=== PATIENT | female | born 1975 | race Caucasian/White ===

== ENCOUNTER 2020-06-18 20:54 | Inpatient (IN) ==
[2020-06-18 21:49] LABS: Basophils # (auto) 0.02 K/uL (0-0.2); Basophils % (auto) 0.3 %; Eosinophils # (auto) 0.15 K/uL (0-0.5); Eosinophils % (auto) 1.9 %; Hematocrit (blood only) 44.4 % (37-47); Hemoglobin 14.9 g/dL (12.0-16.0); Lymphocytes # (auto) 1.22 K/uL (1.2-3.4); Lymphocytes % (auto) 15.3 %; Mean Corpuscular Hgb Conc 33.6 g/dL (32-36); Mean Corpuscular Volume 89.5 fL (80-100); Mean Platelet Volume 9.6 fL (7.4-10.4); Monocytes # (auto) 0.48 K/uL (0.11-0.59); Neutrophils % (auto) 76.5 %; Platelet Count 226 K/uL (130-400); RDW Coefficient of Variation 13.2 % (11.5-14.5); RDW Standard Deviation 42.9 fL (36.4-46.3); Red Blood Count 4.96 M/uL (4.2-5.4); White Blood Count 7.97 K/uL (4.8-10.8)
[2020-06-18 22:04] LABS: Partial Thromboplastin Ratio 0.8; Prothrombin Time 10.9 Seconds (9.0-12.0)
[2020-06-18 22:12] LABS: BUN Creatinine Ratio 12.5 (10-20); Blood Urea Nitrogen 14 mg/dl (7-18); Carbon Dioxide 27 mmol/L (21-32); Chloride 103 mmol/L (98-107); Creatinine Clr Calc Pharmacy 75.9 ml/min; Est GFR (African American) 70.5; Est GFR (Non-African American) 60.8; Glucose 88 mg/dl (70-99); Lipase 104 U/L (73-393); Potassium 3.3 mmol/L (3.5-5.1); Sodium 137 mmol/L (136-145)
[2020-06-18 22:17] LABS: Troponin I < 0.015 ng/ml (0-0.045)
[2020-06-18] MEDS ORDERED: OPTIRAY 320 125ml IV ONE (22:29)
[2020-06-18] MEDS ORDERED: HEPARIN SOD (PORCINE) 1000 UNIT/ML 10 ML VIAL ONE (23:05)
--- NOTE | 2020-06-18 23:12 | Emergency Department Note ---
History of Present Illness General Chief complaint: Shoulder Pain Stated complaint: SHOULDER PAIN WHEN BREATHING, CLOT IN R LEG Time Seen by Provider: 06/18/20 21:02 History of Present Illness Provider complaint: Left shoulder pain Onset (ago): week(s) 1 Location: upper extremity and left Radiation: non-radiation Severity: moderate Pain Consistency: + constant Maximum Pain Intensity: 6 Current Pain Intensity: 6 Quality: + aching Relieved By: + none Exacerbated By: + none Associated symptoms: + chest pain 44-year-old female presents emergency department for left shoulder pain. Patient's pain has been on and off for the last week. She states it is worse when she takes deep breaths. She also states she is having pain in her left chest. Patient states she has been told that she has a DVT in her leg. Patient states her doctor did not put her on any blood thinning medications because they thought that the DVT was not real stating "they thought it was foam". She states that they have been instead doing therapies with the laser. Home Medications Medication Instructions Recorded Confirmed Type [id number]-[id number]-dvqmay ala 1 tab PO DAILY 06/18/20 06/18/20 History [Patrickefsey] Allergies Allergy/AdvReac Type Severity Reaction Status Date / Time terconazole Allergy Intermediate Hives Verified 06/18/20 22:34 IMIDAZOLE Allergy Unknown . Uncoded 06/18/20 22:34 Past Med/Surg History Medical History (Updated 06/18/20 @ 23:18 by Jack Hemphill) DVT (deep vein thrombosis) in HIV (human immunodeficiency virus infection) No pertinent family history Surgical History (Updated 06/18/20 @ 23:14 by Jack Hemphill) No pertinent past surgical history Social History Smoking Status: Never smoker Preferred Language: Maori Feels Safe at Home: Yes Review of Systems A total of 10 systems reviewed and were otherwise negative Physical Exam Vital Signs Vital Signs - 24 hr 06/18/20 20:57 06/18/20 21:31 06/18/20 22:00 Temperature 36.5 C Temperature Source Temporal Artery Scan Pulse Rate 87 88 79 Pulse Rate from SpO2 Sensor 89 77 Respiratory Rate 24 20 20 Respiratory Depth Normal Blood Pressure 167/103 H 131/95 134/83 Blood Pressure Mean 124 113 99 Pulse Oximetry 96 96 98 Oxygen Delivery Method Room Air Room Air Room Air Sepsis Recent Fever Within 48 Hours No Sepsis New/Unexplained Change in Mental Status N/A Sepsis Action Taken by Nursing No Action Required Physical Exam GENERAL: She is oriented to person, place, and time. She appears well-developed and well-nourished. She does not appear distressed. HENT: Exam performed. -Head: Normocephalic and atraumatic. -Right Ear: External ear normal. No mastoid tenderness. -Left Ear: External ear normal. No mastoid tenderness. -Mouth/Throat: The oropharynx is clear and moist. No trismus in the jaw. No dental abscesses or uvula swelling. No oropharyngeal exudate or tonsillar abscesses. EYES: Conjunctivae and EOM are normal. Pupils are equal, round, and reactive to light. Right eye exhibits no discharge. Left eye exhibits no discharge. No scleral icterus. NECK: Normal range of motion. Neck supple. No JVD present. No spinous process tenderness present. No carotid bruit present. No rigidity. No tracheal deviation and normal range of motion present. No Brudzinski's sign and no Kernig's sign noted. CV: Normal rate, regular rhythm, normal heart sounds and intact distal pulses. There is no peripheral edema. Palpable radial pulses bue. PULM/CHEST: Effort normal and breath sounds normal. No respiratory distress. No stridor. She has no wheezes. She has no rales. -Chest Wall: She exhibits no tenderness. ABD: The abdomen is soft. Bowel sounds are normal. She has no distension. No mass is present. There is no tenderness. There is no rebound, no guarding, no Mccormack's sign and no tenderness at McBurney's point. Rovsig negative MUSC/SKEL: Normal range of motion. There is no peripheral edema, tenderness or deformity. LYMPH: No cervical adenopathy. NEURO: She is alert and oriented to person, place, and time. She has normal strength. No cranial nerve deficit or sensory deficit. Coordination and gait normal. GCS eye subscore is 4. GCS verbal subscore is 5. GCS motor subscore is 6. Cerebellar tests wnl. SKIN: Skin is warm and dry. She is not diaphoretic. PSYCH: She has a normal mood and affect. Behavior is normal. Judgment and thought content normal. Course Course 2101: The patient was evaluated in room C9. A complete history and physical exam was performed. Cardiac monitoring: An order was placed for continuous cardiac monitoring. The monitor shows a rate of 80 with sinus rhythm 2315: Vital signs stable. CTA of the chest did show segmental PE in the lingula with diffuse bilateral groundglass attenuation. Labs are within normal limits. Patient will be started on heparin and admitted to the hospitalist service Dr. Pina will evaluate the patient. Administered Medications Discontinued Medications Ioversol (Optiray 320 125ml) 103 ml IV ONCE ONE Stop: 06/18/20 22:30 Last Admin: 06/18/20 22:30 Dose: 103 ml Documented by: [id number] Critical Care Time Critical Care Time: Yes Total Critical Care Time: 46 I have personally spent greater than 46 minutes of critical care time in the dir ect management of this patient. This includes bedside care, interpretation of diagnostic studies, and testing, discussion with consultants, patient, and family members, and other required patient management activities. This 46 minutes is in excess of all separately billable procedures. Medical Decision Making Laboratory Data Result diagrams: 06/18/20 21:40 06/18/20 21:40 Lab Results 06/18/20 06/18/20 06/18/20 Range/Units 21:40 21:40 21:40 WBC 7.97 (4.8-10.8) K/uL RBC 4.96 (4.2-5.4) M/uL Hgb 14.9 (12.0-16.0) g/dL Hct 44.4 (37-47) % MCV 89.5 (80-100) fL MCH 30.0 (25-34) pg MCHC 33.6 (32-36) g/dL RDW Std Deviation 42.9 (36.4-46.3) fL RDW Coeff of Trung 13.2 (11.5-14.5) % Plt Count 226 (130-400) K/uL MPV 9.6 (7.4-10.4) fL Immature Gran % (Auto) 0.0 % Neut % (Auto) 76.5 % Lymph % (Auto) 15.3 % Tarrant % (Auto) 6.0 % Eos % (Auto) 1.9 % Baso % (Auto) 0.3 % Neut # (Auto) 6.10 (1.4-6.5) K/uL Lymph # (Auto) 1.22 (1.2-3.4) K/uL Tarrant # (Auto) 0.48 (0.11-0.59) K/uL Eos # (Auto) 0.15 (0-0.5) K/uL Baso # (Auto) 0.02 (0-0.2) K/uL Immature Gran # (Auto) 0.00 (0.00-0.02) K/uL PT 10.9 (9.0-12.0) Seconds INR 1.0 (0.9-1.1) APTT 21.0 (21.0-31.0) Seconds PTT Ratio 0.8 Sodium 137 (136-145) mmol/L Potassium 3.3 L (3.5-5.1) mmol/L Chloride 103 (98-107) mmol/L Carbon Dioxide 27 (21-32) mmol/L Anion Gap 7.0 (3-11) BUN 14 (7-18) mg/dl Creatinine 1.09 (0.6-1.2) mg/dl Est Cr Clr Drug Dosing 75.9 ml/min Est GFR ( Amer) 70.5 Est GFR (Non-Af Amer) 60.8 BUN/Creatinine Ratio 12.5 (10-20) Glucose 88 (70-99) mg/dl Calcium 9.0 (8.5-10.1) mg/dl Troponin I < 0.015 (0-0.045) ng/ml Lipase 104 (73-393) U/L Imaging Data My Impression: Chest x-ray negative. Airway clear. No pneumothorax. No consolidation. No cardiomegaly or cephalization.. No free air under the diaphragm. No fractures of the skeletal structures. Radiologist's Impression: Preliminary Findings Only See Final Report For Complete Findings CTA CHEST: Study degraded by respiratory motion. Acute segmental pulmonary embolism in the lingula (series 4, images 69-85; series 402, image 60). No right ventricular strain. No thoracic aortic aneurysm. Normal heart size. No pericardial effusion. Diffuse bilateral ground-glass lung attenuation may represent mild congestive and/or atelectatic change. No consolidation. No pleural effusion or pneumothorax. No acute osseous findings. Radiologist: Milla Leon M.D. Study ready at 22:35 and initial results transmitted at 22:41 Communications: Clear Time Type Notes 06/18/20 22:44 Call Doctor Regarding Pulmonary Embolism, called Dr. Hemphill on 06/18 22:44 (-05:00) ECG Data Indication: + chest pain Rate (beats per minute): 85 Rhythm: + normal sinus ECG Intervals/blocks: + Normal TN and + Normal QT-c ECG ST segments: + Normal ST segments Additional Comments: QRS 76 MDM Narrative 2102: The patient was evaluated in room C9. A complete history and physical exam was performed. Cardiac monitoring: An order was placed for continuous cardiac monitoring. The monitor shows a rate of 80 with sinus rhythm 2315: Vital signs stable. CTA of the chest did show segmental PE in the lingula with diffuse bilateral groundglass attenuation. Labs are within normal limits. Patient will be started on heparin and admitted to the hospitalist service Dr. Pina will evaluate the patient. Impression & Plan Pulmonary embolism, HIV (human immunodeficiency virus infection) Discharge Plan Visit Data Chief Complaint: Shoulder Pain Stated Complaint: SHOULDER PAIN WHEN BREATHING, CLOT IN R LEG ED Provider: Jack Hemphill Discharge Problem: Pulmonary embolism, HIV (human immunodeficiency virus infection) Patient Disposition: Being Evaluated by Hospitalist Forms Stand Alone Forms: [facility] Prescriptions Prescriptions: No Action Odefsey 200-25-25 mg tablet 1 tab PO DAILY RF: 0 Referrals Referrals: Dontae Boyd MD [Primary Care Provider] - Discharge Problem: Pulmonary embolism Qualifiers: Pulmonary embolism type: single subsegmental (without acute cor pulmonale) Qualified Code(s): I26.93 - Single subsegmental pulmonary embolism without acute cor pulmonale HIV (human immunodeficiency virus infection) Qualifiers: HIV symptom status: unspecified Qualified Code(s): B20 - Human immunodeficiency virus [HIV] disease
[2020-06-19] MEDS: HEPARIN SODIUM/DEXTROSE 25,000 UNITS/500 ML BAG IV SCH ×2 (00:04→20:08)
[2020-06-19] MEDS ORDERED: LORazepam 0.5 MG TAB PO STA (00:20)
[2020-06-19 00:54] LABS: Influenza A virus by PCR Negative (Neg); Influenza B virus by PCR Negative (Neg); RSV by PCR Negative (Neg); SARS CoV2 RNA(COVID-19) InHosp NEGATIVE (Negative)
[2020-06-19] MEDS ORDERED: ONDANSETRON INJ 2 MG/ML 2 ML VIAL IV STA (01:33)
[2020-06-19] MEDS ORDERED: POLYETHYLENE (MIRALAX) 17 GM PACK PO PRN (01:49)
[2020-06-19] MEDS ORDERED: NITROGLYCERIN SL 0.4 MG/TAB TAB SL PRN (01:49)
[2020-06-19] MEDS ORDERED: LORazepam 0.5 MG TAB PO PRN (01:49)
[2020-06-19] MEDS ORDERED: GABAPENTIN 300 MG CAP PO STA (02:02)
[2020-06-19] MEDS: ACETAMINOPHEN 325 MG TAB PO PRN ×2 (02:10→10:35)
[2020-06-19] MEDS ORDERED: KETOROLAC 30 MG/ML VIAL IV ONE (02:34)
[2020-06-19] MEDS ORDERED: LORazepam 0.25 MG/0.5 ML VIAL IV STA (03:08)
--- NOTE | 2020-06-19 03:27 | History and Physical Report ---
DATE OF ADMISSION: 06/19/2020 CHIEF COMPLAINT: Left shoulder pain and found to have acute pulmonary embolism. HISTORY OF PRESENT ILLNESS: This 44-year-old female with past medical history significant for HIV, currently seems to be undetectable viral load, history of asthma, obesity, history of uterine fibroid, history of anxiety, who presents with left shoulder pain. The patient says she is also having venous insufficiency and is following in the vascular clinic where they injected foam into the legs recently. Couple of weeks Doppler showed possible dvt , but they were not sure if that is a clot or foam. Today, she came with left shoulder pain and a CTA of the chest showing acute PE in the lingula and also venous Doppler shows nonocclusive DVT in the right popliteal vein. The patient says the pain is now moving to left chest and pain is more on taking deep breath and subjective feeling of shortness of breath. She had some leg cramps, but that is improved now. The patient is anxious, she asked for some anxiety medication. Says she does not like narcotic pain medications, but okay with Tylenol. Denies any nausea, vomiting. No headache, no blurred vision, no earache, no runny nose, no sore throat, no cough, no loss of sense of smell or taste. No exposure to any COVID patients. No fevers. No dysphagia, no abdominal pain. Normal bowel and bladder movements. Denies any blood in the stools or black stools. No hematuria. Hemodynamics are stable. ALLERGIES: TERCONAZOLE, IMIDAZOLE. PAST MEDICAL HISTORY: As mentioned above. PAST SURGICAL HISTORY: Left breast lesion excision, , oral surgery. MEDICATIONS: The patient is on Odefsey 1 tablet p.o. daily. FAMILY HISTORY: Significant for mother had breast cancer, uterine cancer, hypertension, tumor of her kidney; father has hypertension; maternal grandmother has diabetes; paternal grandmother has diabetes; paternal grandfather has heart disorder; paternal grandmother has heart disorder; maternal grandmother has heart disorder. SOCIAL HISTORY: . No smoking. Alcohol occasional. No drug use. REVIEW OF SYSTEMS: As per HPI. Rest of the review of systems is negative. PHYSICAL EXAMINATION: GENERAL: The patient is morbidly obese, not in acute distress. VITAL SIGNS: Temperature 36.5, pulse 94, respiratory rate 22, blood pressure 110/82, oxygen 96% on room air. HEENT: No pallor, no icterus. Oral mucosa moist. NECK: No JVD, no neck masses seen. CARDIOVASCULAR: S1, S2 heard. Regular rate and rhythm, no murmur, no gallop. RESPIRATORY SYSTEM: Normal AP diameter. No accessory muscle use. No wheezing, no crackles. ABDOMEN: Soft, bowel sounds present, nontender. No distention. CENTRAL NERVOUS SYSTEM: Cranial nerves II through XII grossly intact, nonfocal. EXTREMITIES: Bilateral lower extremity chronic edema seen. Right lower extremity, right calf is warm to palpation. LABORATORY DATA: WBC 7.9, hemoglobin 14.9, hematocrit 44.4, platelets 226. PT 10.9, INR 1, APTT 21. Sodium 137, potassium 3.3, chloride 103, bicarbonate 27, BUN 14, creatinine 1.09, serum glucose 88, calcium 9. Troponin I less than 0.015. Lipase 104. IMAGING DATA: Venous Doppler, nonocclusive right lower extremity right popliteal vein DVT. CT of the chest, showing acute segmental pulmonary embolism in the lingula. EKG: Normal sinus rhythm, rate 85, no acute ST changes seen. ASSESSMENT AND PLAN: This is a 44-year-old female who presents with left shoulder pain and found to have acute pulmonary embolism and also non occlusive deep venous thrombosis in the right lower extremity. 1. Acute pulmonary embolism. Nonocclusive deep venous thrombosis in the right lower extremity. Started on IV heparin, which will be continued Coumadin vs novel agents , to be decided. We will monitor in the [employer]. 2. History of HIV: Continue her home medications. 3. History of anxiety: We will place on Ativan 0.5 mg p.o. b.i.d. p.r.n. 4. Deep venous thrombosis prophylaxis: On iv heparin. DISPOSITION: Monitor in the med tele. Expect to discharge home and follow with family doctor. Level 1 full code. MTDD
[2020-06-19 06:08] LABS: Basophils # (auto) 0.02 K/uL (0-0.2); Basophils % (auto) 0.2 %; Eosinophils # (auto) 0.04 K/uL (0-0.5); Eosinophils % (auto) 0.4 %; Hematocrit (blood only) 37.5 % (37-47); Hemoglobin 12.9 g/dL (12.0-16.0); Immature Granulocytes # (auto) 0.01 K/uL (0.00-0.02); Immature Granulocytes % (auto) 0.1 %; Mean Corpuscular Hemoglobin 30.7 pg (25-34); Mean Corpuscular Hgb Conc 34.4 g/dL (32-36); Mean Corpuscular Volume 89.3 fL (80-100); Mean Platelet Volume 9.5 fL (7.4-10.4); Monocytes # (auto) 0.45 K/uL (0.11-0.59); Monocytes % (auto) 4.5 %; Neutrophils # (auto) 8.58 K/uL (1.4-6.5); Neutrophils % (auto) 85.8 %; Platelet Count 227 K/uL (130-400); RDW Coefficient of Variation 13.2 % (11.5-14.5)
[2020-06-19 06:30] LABS: Partial Thromboplastin Ratio 3.5
[2020-06-19 06:38] LABS: Calcium 8.5 mg/dl (8.5-10.1); Est GFR (African American) 87.7; Est GFR (Non-African American) 75.7; Magnesium 1.9 mg/dl (1.8-2.4); Potassium 3.6 mmol/L (3.5-5.1)
[2020-06-19 06:49] LABS: Partial Thromboplastin Time 96.7 Seconds (21.0-31.0)
--- NOTE | 2020-06-19 07:25 | CT Scan Report ---
CT ANGIOGRAM OF THE CHEST CLINICAL HISTORY: Atypical chest pain. Possible acute pulmonary embolism COMPARISON STUDY: Chest x-ray dated 06/18/2020 TECHNIQUE: Following the IV administration of 103 mL of Optiray-320, CT angiogram of the thorax was p erformed from the thoracic inlet to the lung bases utilizing the pulmonary embolus protocol. Images a re reviewed in the axial, sagittal, and coronal planes. IV contrast was administered without complica tion. MIP imaging was performed. A dose lowering technique was utilized adhering to the principles o f ALARA. CT DOSE: 569.06 mGy.cm FINDINGS: No pathologically enlarged axillary mediastinal or hilar lymph nodes were visualized. There was no evidence of thoracic aortic dilatation. Evaluation of the pulmonary arteries is limited due to significant respiratory motion artifact. There are the last there appears to be a filling defect within a lingular pulmonary artery branch. The fin dings must be viewed as suspicious for acute pulmonary embolism. No pleural effusions are visualized. There is mild groundglass attenuation with a slight mosaic distribution. IMPRESSION: 1. Motion degraded study 2. Apparent pulmonary artery filling defect within a segmental lingular branch. The findings are susp icious for acute pulmonary embolism. 3. Mild diffuse groundglass attenuation with mosaic distribution. ACT 112: Negative or not required by law. Electronically signed by: Adrien Rivera M.D. 06/19/2020 7:24 AM
--- NOTE | 2020-06-19 07:36 | Ultrasound Report ---
ULTRASOUND BILATERAL LOWER EXTREMITY VENOUS CLINICAL HISTORY: Pulmonary embolus COMPARISON STUDY: No priors. TECHNIQUE: Real-time, grayscale, and color Doppler sonography of the deep veins of the right and left lower extremity was performed from the inguinal crease to the calf. Compression and augmentation wer e utilized. FINDINGS: Right lower extremity: There is nonocclusive and acute appearing deep venous thrombosis identified in the right popliteal vein. There is also superficial venous thrombus identified in the popliteal roberta a. The common femoral vein and the superficial femoral vein are patent and normally compressible. The greater saphenous vein and the profunda femoris vein at the junction with the common femoral vein ar e clear. The visualized calf veins are patent. Left lower extremity: There is no sonographic evidence of deep venous thrombosis in the left lower ex tremity. The common femoral, superficial femoral, and popliteal veins are patent and normally rogelio sible. The greater saphenous vein and the profunda femoris vein at the junction with the common femor al vein are clear. The visualized calf veins are patent. IMPRESSION: 1. Nonocclusive deep venous thrombosis is identified in the right popliteal vein. There is also super ficial venous thrombus in the right popliteal fossa. 2. There is no sonographic evidence of deep venous thrombosis in the left lower extremity. ACT 112: Positive. There are findings on this exam that require communication between the performing entity and the patient following Patient Test Result Information Act ([place] Act 112) guidelines. Electronically signed by: Sergio Taveras M.D. 06/19/2020 7:34 AM
--- NOTE | 2020-06-19 07:37 | XRay Report ---
SINGLE VIEW CHEST CLINICAL HISTORY: Atypical chest pain. FINDINGS: An AP, portable, upright chest radiograph is obtained. No prior studies are available for c omparison at the time of dictation. The cardiomediastinal silhouette is unremarkable. The lungs and pleural spaces are clear. No pneumothorax is seen. The bony thorax is grossly intact. IMPRESSION: No active disease in the chest. ACT 112: Negative or not required by law. Electronically signed by: Sergio Taveras M.D. 06/19/2020 7:35 AM
--- NOTE | 2020-06-19 07:47 | Hospitalist Progress Note ---
Date of Service June 19, 2020 Assessment & Plan (1) Pulmonary embolism: (2) HIV (human immunodeficiency virus infection): This is a 44-year-old female who presents with left shoulder pain and found to have acute pulmonary embolism and also non occlusive deep venous thrombosis in the right lower extremity. 1. Acute pulmonary embolism. Nonocclusive deep venous thrombosis in the right lower extremity. Started on IV heparin, which will be continued Coumadin vs novel agents , to be decided. We will monitor in the [place] tele. Lidocaine patch for pain, Tylenol Oxycodone ordered prn 2. History of HIV: Continue her home medications. 3. History of anxiety: We will place on Ativan 0.5 mg p.o. b.i.d. p.r.n. 4. Deep venous thrombosis prophylaxis: On iv heparin. Admission and Anticipated Discharge Date Admission Date: June 19, 2020 Subjective Pt seen in follow up of PE, chest pain, shoulder pain. Continues to have chest pain with deep inspiration or certain movements. No shortness of breath at this time. Review of Systems Review of Systems: All systems reviewed & are unremarkable except as noted in HPI & below Constitutional: no fever, no chills and no fatigue Respiratory: no cough and no dyspnea Cardiovascular: + chest pain (w/ inspiration) Gastrointestinal: no abdominal pain, no nausea and no vomiting Physical Exam Physical Exam: GENERAL: The patient is morbidly obese, not in acute distress. HEENT: No pallor, no icterus. Oral mucosa moist. NECK: No JVD, no neck masses seen. CARDIOVASCULAR: S1, S2 heard. Regular rate and rhythm, no murmur, no gallop. RESPIRATORY SYSTEM: Normal AP diameter. No accessory muscle use. Somewhat diminished breath sounds. No wheezing, no crackles. ABDOMEN: Soft, bowel sounds present, nontender. No distention. NEURO: alert and oriented x3, speech fluent, no facial asymmetry, moves extremi ties EXTREMITIES: Bilateral lower extremity chronic edema seen. Results & Data Results & Data ([facility]) Vital Signs (Past 12 Hours) Vital Signs Temp Pulse Pulse Resp BP BP Pulse Ox 06/19/20 07:24 70 06/19/20 02:59 37 C 85 22 117/68 98 06/19/20 02:29 92 H 06/19/20 01:51 37.8 C H 83 18 118/79 95 06/19/20 01:00 99 H 18 121/78 96 06/19/20 00:30 89 24 115/67 97 06/19/20 00:00 94 H 22 110/82 96 06/18/20 23:46 101 H 30 H 138/92 97 06/18/20 22:00 79 20 134/83 98 06/18/20 21:31 88 20 131/95 96 06/18/20 20:57 36.5 C 87 24 167/103 H 96 Laboratory Results 06/19/20 06/19/20 06/19/20 Range/Units 05:51 05:51 05:51 WBC 10.00 (4.8-10.8) K/uL RBC 4.20 (4.2-5.4) M/uL Hgb 12.9 (12.0-16.0) g/dL Hct 37.5 (37-47) % MCV 89.3 (80-100) fL MCH 30.7 (25-34) pg MCHC 34.4 (32-36) g/dL RDW Std Deviation 43.0 (36.4-46.3) fL RDW Coeff of Trung 13.2 (11.5-14.5) % Plt Count 227 (130-400) K/uL MPV 9.5 (7.4-10.4) fL Immature Gran % (Auto) 0.1 % Neut % (Auto) 85.8 % Lymph % (Auto) 9.0 % [facility] % (Auto) 4.5 % Eos % (Auto) 0.4 % Baso % (Auto) 0.2 % Neut # (Auto) 8.58 H (1.4-6.5) K/uL Lymph # (Auto) 0.90 L (1.2-3.4) K/uL [facility] # (Auto) 0.45 (0.11-0.59) K/uL Eos # (Auto) 0.04 (0-0.5) K/uL Baso # (Auto) 0.02 (0-0.2) K/uL Immature Gran # (Auto) 0.01 (0.00-0.02) K/uL PT (9.0-12.0) Seconds INR (0.9-1.1) APTT 96.7 H* (21.0-31.0) Seconds PTT Ratio 3.5 Sodium 137 (136-145) mmol/L Potassium 3.6 (3.5-5.1) mmol/L Chloride 105 (98-107) mmol/L Carbon Dioxide 24 (21-32) mmol/L Anion Gap 8.0 (3-11) BUN 11 (7-18) mg/dl Creatinine 0.91 (0.6-1.2) mg/dl Est Cr Clr Drug Dosing 90.0 ml/min Est GFR ( Amer) 87.7 Est GFR (Non-Af Amer) 75.7 BUN/Creatinine Ratio 12.0 (10-20) Glucose 122 H (70-99) mg/dl Calcium 8.5 (8.5-10.1) mg/dl Magnesium 1.9 (1.8-2.4) mg/dl Troponin I (0-0.045) ng/ml Lipase (73-393) U/L COVID-19 Eval Order SARS-CoV-2 (PCR) (Negative) Influenza Type A (PCR) (Neg) Influenza Type B (PCR) (Neg) RSV (RT-PCR) (Neg) 06/18/20 06/18/20 06/18/20 Range/Units 23:47 23:47 21:40 WBC (4.8-10.8) K/uL RBC (4.2-5.4) M/uL Hgb (12.0-16.0) g/dL Hct (37-47) % MCV (80-100) fL MCH (25-34) pg MCHC (32-36) g/dL RDW Std Deviation (36.4-46.3) fL RDW Coeff of Trung (11.5-14.5) % Plt Count (130-400) K/uL MPV (7.4-10.4) fL Immature Gran % (Auto) % Neut % (Auto) % Lymph % (Auto) % [facility] % (Auto) % Eos % (Auto) % Baso % (Auto) % Neut # (Auto) (1.4-6.5) K/uL Lymph # (Auto) (1.2-3.4) K/uL [facility] # (Auto) (0.11-0.59) K/uL Eos # (Auto) (0-0.5) K/uL Baso # (Auto) (0-0.2) K/uL Immature Gran # (Auto) (0.00-0.02) K/uL PT (9.0-12.0) Seconds INR (0.9-1.1) APTT (21.0-31.0) Seconds PTT Ratio Sodium 137 (136-145) mmol/L Potassium 3.3 L (3.5-5.1) mmol/L Chloride 103 (98-107) mmol/L Carbon Dioxide 27 (21-32) mmol/L Anion Gap 7.0 (3-11) BUN 14 (7-18) mg/dl Creatinine 1.09 (0.6-1.2) mg/dl Est Cr Clr Drug Dosing 75.9 ml/min Est GFR ( Amer) 70.5 Est GFR (Non-Af Amer) 60.8 BUN/Creatinine Ratio 12.5 (10-20) Glucose 88 (70-99) mg/dl Calcium 9.0 (8.5-10.1) mg/dl Magnesium (1.8-2.4) mg/dl Troponin I < 0.015 (0-0.045) ng/ml Lipase 104 (73-393) U/L COVID-19 Eval Order CovFluRsv at [facility] SARS-CoV-2 (PCR) NEGATIVE (Negative) Influenza Type A (PCR) Negative (Neg) Influenza Type B (PCR) Negative (Neg) RSV (RT-PCR) Negative (Neg) 06/18/20 06/18/20 Range/Units 21:40 21:40 WBC 7.97 (4.8-10.8) K/uL RBC 4.96 (4.2-5.4) M/uL Hgb 14.9 (12.0-16.0) g/dL Hct 44.4 (37-47) % MCV 89.5 (80-100) fL MCH 30.0 (25-34) pg MCHC 33.6 (32-36) g/dL RDW Std Deviation 42.9 (36.4-46.3) fL RDW Coeff of Trung 13.2 (11.5-14.5) % Plt Count 226 (130-400) K/uL MPV 9.6 (7.4-10.4) fL Immature Gran % (Auto) 0.0 % Neut % (Auto) 76.5 % Lymph % (Auto) 15.3 % [facility] % (Auto) 6.0 % Eos % (Auto) 1.9 % Baso % (Auto) 0.3 % Neut # (Auto) 6.10 (1.4-6.5) K/uL Lymph # (Auto) 1.22 (1.2-3.4) K/uL [facility] # (Auto) 0.48 (0.11-0.59) K/uL Eos # (Auto) 0.15 (0-0.5) K/uL Baso # (Auto) 0.02 (0-0.2) K/uL Immature Gran # (Auto) 0.00 (0.00-0.02) K/uL PT 10.9 (9.0-12.0) Seconds INR 1.0 (0.9-1.1) APTT 21.0 (21.0-31.0) Seconds PTT Ratio 0.8 Sodium (136-145) mmol/L Potassium (3.5-5.1) mmol/L Chloride (98-107) mmol/L Carbon Dioxide (21-32) mmol/L Anion Gap (3-11) BUN (7-18) mg/dl Creatinine (0.6-1.2) mg/dl Est Cr Clr Drug Dosing ml/min Est GFR ( Amer) Est GFR (Non-Af Amer) BUN/Creatinine Ratio (10-20) Glucose (70-99) mg/dl Calcium (8.5-10.1) mg/dl Magnesium (1.8-2.4) mg/dl Troponin I (0-0.045) ng/ml Lipase (73-393) U/L COVID-19 Eval Order SARS-CoV-2 (PCR) (Negative) Influenza Type A (PCR) (Neg) Influenza Type B (PCR) (Neg) RSV (RT-PCR) (Neg) Medications Administered Current Inpatient Medications Acetaminophen (Acetaminophen 325 Mg Tab) 650 mg PO Q4H PRN PRN Reason: Pain or Fever Stop: 07/19/20 01:48 Last Admin: 06/19/20 02:10 Dose: 650 mg Documented by: Heparin Sodium/Dextrose (Heparin Sodium/Dextrose) 25,000 units in 500 mls @ 27 mls/hr IV .[id number] [facility]; Protocol Stop: 07/18/20 22:59 Last Titration: 06/19/20 06:49 Dose: 0 units/hr, 0 mls/hr Documented by: Lorazepam (Lorazepam 0.5 Mg Tab) 0.25 mg PO BID PRN PRN Reason: Anxiety Stop: 07/19/20 01:48 Last Admin: 06/19/20 02:17 Dose: 0.25 mg Documented by: Miscellaneous ([id number] [Patrickefsey]: Order Awaiting Action) 1 ea N/A QS [facility] Stop: 07/19/20 07:59 Nitroglycerin (Nitroglycerin Sl 0.4 Mg/Tab Tab) 0.4 mg SL UD PRN PRN Reason: Chest Pain Stop: 07/19/20 01:48 Ondansetron HCl (Ondansetron Inj 2 Mg/Ml 2 Ml Vial) 4 mg IV Q6H PRN PRN Reason: Nausea Stop: 07/19/20 01:48 Polyethylene Glycol (Polyethylene (Miralax) 17 Gm Pack) 17 gm PO DAILY PRN PRN Reason: Constipation Stop: 07/19/20 01:48 (1) HIV (human immunodeficiency virus infection) HIV symptom status: unspecified Qualified Code(s): B20 - Human immunodeficiency virus [HIV] disease (2) Pulmonary embolism Pulmonary embolism type: single subsegmental (without acute cor pulmonale) Qualified Code(s): I26.93 - Single subsegmental pulmonary embolism without acute cor pulmonale
--- NOTE | 2020-06-19 11:23 | Electrocardiogram Report ---
Test Reason : Blood Pressure : / mmHG Vent. Rate : 085 BPM Atrial Rate : 085 BPM P-R Int : 148 ms QRS Dur : 076 ms QT Int : 384 ms P-R-T Axes : 015 017 015 degrees QTc Int : 456 ms Normal sinus rhythm Normal ECG No previous ECGs available Confirmed by Anderson Montesinos ([id number]) on 06/19/2020 11:23:00 AM Referred By: REFERRED SELF Confirmed By:Efrain Montesinos
[2020-06-19] MEDS ORDERED: oxyCODONE HCL IR 5 MG TAB (IMMEDIATE RELEASE) PO PRN ×2 (13:16→18:23)
[2020-06-19] MEDS: LIDOCAINE 5% 1 PATCH TD SCH (13:46)
[2020-06-19] MEDS ORDERED: MAGNESIUM OXIDE 400 MG TAB PO ONE (14:30)
[2020-06-19] MEDS ORDERED: POTASSIUM CHLORIDE CRTAB 20 MEQ TABCR PO ONE (14:30)
[2020-06-19 14:50] LABS: Partial Thromboplastin Ratio 2.2
[2020-06-19] MEDS ORDERED: MoRPHine SULFATE 2 MG/ML CARP IV STA ×2 (16:03→18:22)
--- NOTE | 2020-06-19 16:24 | Electrocardiogram Report ---
Test Reason : Blood Pressure : / mmHG Vent. Rate : 077 BPM Atrial Rate : 077 BPM P-R Int : 124 ms QRS Dur : 084 ms QT Int : 412 ms P-R-T Axes : 030 021 019 degrees QTc Int : 466 ms Normal sinus rhythm When compared with ECG of 18-JUN-2020 21:24, No significant change was found Confirmed by Anderson Montesinos ([id number]) on 06/19/2020 4:24:18 PM Referred By: REFERRED SELF Confirmed By:Efrain Montesinos
--- NOTE | 2020-06-19 17:00 | XRay Report ---
XR chest 1V portable HISTORY: 44 years-old Female follow up, chest pain . Acute atypical chest pain COMPARISON: Chest radiograph and CTA chest 06/18/2020 TECHNIQUE: Portable AP view of the chest FINDINGS: Cardiac silhouette is enlarged. Hypoinflation with bronchovascular crowding and interstitial coarseni ng. Bibasilar consolidative opacities. Blunting of the costophrenic angles. No pneumothorax. Imaged u pper abdomen is unremarkable. The bones appear grossly intact. IMPRESSION: Hypoinflation with bronchovascular crowding and bibasilar consolidation suggestive of ate lectasis versus pneumonitis. ACT 112: Negative or not required by law. The above report was generated using voice recognition software. It may contain grammatical, syntax o r spelling errors. Electronically signed by: Justin Mclean M.D. 06/19/2020 4:59 PM
[2020-06-19] MEDS ORDERED: FUROSEMIDE 20 MG in SYRINGE 0 ML IV ONE (17:45)
--- NOTE | 2020-06-19 19:11 | CT Scan Report ---
CT chest diagnostic wo con CT DOSE: 455.77 mGycm CLINICAL HISTORY: 44 years-old Female with follow up, abnormal CXR, PE, chest pain. Acute shortness of breath with bibasilar opacities TECHNIQUE: Multiaxial CT images of the chest were performed without contrast. A dose lowering techni que was utilized adhering to the principles of ALARA. COMPARISON: CTA chest 06/18/2020 FINDINGS: Unremarkable thyroid. No adenopathy. Heart is upper limits of normal in size. No thoracic a ortic aneurysm. Trace pleural effusions. No pneumothorax. Linear subsegmental consolidative opacities are noted bilaterally suggestive of atelectasis. Groundglass and consolidative opacities of the infe rior segment lingula with dense consolidation of the basal left lower lobe with air bronchograms. Misael tral airways appear patent. No acute process of the imaged upper abdomen. Unremarkable soft tissues. No acute fracture. IMPRESSION: 1. Airspace consolidation with air bronchograms of the basal left lower lobe with groundglass and con solidative opacities of the inferior segment lingula are suggestive of pneumonia. 2. No adenopathy. 3. Trace pleural effusions. ACT 112: Negative or not required by law. Electronically signed by: Justin Mclean M.D. 06/19/2020 7:10 PM
[2020-06-19] MEDS: HYDROmorphone INJ 0.5 MG/0.5 ML SYR IV PRN ×2 (19:31→22:42)
[2020-06-19] MEDS: AMOXICILLIN/CLAVULANATE 875 MG TAB PO SCH (21:23)
[2020-06-19] MEDS ORDERED: Nursing to Pharmacy Communication SCH (21:30)
[2020-06-20] MEDS: HYDROmorphone INJ 0.5 MG/0.5 ML SYR IV PRN ×6 (02:09→21:57)
[2020-06-20 06:17] LABS: Hematocrit (blood only) 38.8 % (37-47); Hemoglobin 13.1 g/dL (12.0-16.0); Mean Corpuscular Hemoglobin 30.8 pg (25-34); Mean Corpuscular Hgb Conc 33.8 g/dL (32-36); Mean Corpuscular Volume 91.1 fL (80-100); Mean Platelet Volume 9.7 fL (7.4-10.4); Platelet Count 215 K/uL (130-400); RDW Coefficient of Variation 13.4 % (11.5-14.5); RDW Standard Deviation 44.5 fL (36.4-46.3); Red Blood Count 4.26 M/uL (4.2-5.4); White Blood Count 9.08 K/uL (4.8-10.8)
[2020-06-20 06:42] LABS: BUN Creatinine Ratio 15.9 (10-20); Calcium 8.5 mg/dl (8.5-10.1); Creatinine Clr Calc Pharmacy 88.2 ml/min; Est GFR (African American) 85.4; Est GFR (Non-African American) 73.7; Potassium 3.7 mmol/L (3.5-5.1)
[2020-06-20] MEDS ORDERED: PERFLUTREN LIPID MICROSPHERE (DEFINITY) IV ONE (07:13)
[2020-06-20 07:37] LABS: Partial Thromboplastin Time 56.6 Seconds (21.0-31.0)
[2020-06-20] MEDS: LIDOCAINE 5% 1 PATCH TD SCH (08:44)
[2020-06-20] MEDS: AMOXICILLIN/CLAVULANATE 875 MG TAB PO SCH ×2 (08:44→17:28)
[2020-06-20] MEDS ORDERED: ODEFSEY PO SCH ×2 (09:00→21:00)
[2020-06-20] MEDS: ONDANSETRON INJ 2 MG/ML 2 ML VIAL IV PRN (11:28)
[2020-06-20] MEDS ORDERED: NAPROXEN 250 MG TAB PO ONE (12:30)
--- NOTE | 2020-06-20 13:01 | Hospitalist Progress Note ---
Date of Service June 20, 2020 Assessment & Plan (1) Pulmonary embolism: (2) HIV (human immunodeficiency virus infection): Patient is a 59-year-old female with a past medical history of HIV, asthma, uterine fibroids, possible lower extremity DVT during and venous insufficiency with recent injection form therapy presents to the ED with left shoulder pain. Patient was found to be positive for pulmonary embolism and nonocclusive DVT in the right popliteal vein. This is a 44-year-old female who presents with left shoulder pain and found to have acute pulmonary embolism and also non occlusive deep venous thrombosis in the right lower extremity. Acute pulmonary embolism Nonocclusive DVT in the right popliteal vein Patient denies any prior history with a DVT. Does report the mother have had history of DVTs denies any recent travel. Report recent lower extremity procedure intervention by vascular surgery but patient has been ambulatory. Continue with heparin at this point. Patient remains on 2 L of nasal cannula. Hemodynamically she is doing okay. Obtain transthoracic echo to assess for right heart strain. Given her significant chest discomfort and shortness of breath, will remain on heparin for now. Start patient on Tylenol [id number]-sle-hsyay along with lidocaine patch. Patient has also been on oxycodone and Dilaudid for pain control but is not really helping her much. Did order 1 dose of naproxen this morning. Given her significant chest pain last night CT chest was ordered and there was concern for pneumonia. She was started on Augmentin. However, her white count is normal. Patient was afebrile. We will continue with Augmentin for now. 2. History of HIV: Continue her home medications. 3. History of anxiety: Continue with the as needed Ativan. Admission and Anticipated Discharge Date Admission Date: June 19, 2020 Subjective Patient having significant chest discomfort. Reports she is having difficulty taking deep breaths. She has pleuritic nature of chest discomfort with deep breaths. Does report headache but no dizziness. Denies any palpitations. Does endorse feeling short of breath. Currently on 2 L of nasal cannula. Denies any abdominal pain, diarrhea or dysuria. Rest of the review of system is negative. Review of Systems Review of Systems: All systems reviewed & are unremarkable except as noted in HPI & below Physical Exam Physical Exam: General: A&Ox3 HENT: NCAT, MMM, EOMI Eyes: PERRLA Neck: Supple, normal range of motion CVS: normal rate and rhythm Resp: b/l basal crackles appreciated Abdomen: Soft, nondistended and nontender Extremities: Absence of any edema Neuro: face symmetric, strength grossly equal, no focal deficit Skin: warm and dry, no rashes/lesions/errythema MSK: normal ROM, no joint swelling/erythema Results & Data Results & Data ([facility]) Vital Signs (Past 12 Hours) Vital Signs Temp Pulse Pulse Resp BP Pulse Ox 06/20/20 11:22 37.1 C 87 16 122/83 95 06/20/20 08:00 81 06/20/20 07:00 37.0 C 96 H 20 118/79 (1) Pulmonary embolism Pulmonary embolism type: single subsegmental (without acute cor pulmonale) Q ualified Code(s): I26.93 - Single subsegmental pulmonary embolism without acute cor pulmonale (2) HIV (human immunodeficiency virus infection) HIV symptom status: unspecified Qualified Code(s): B20 - Human immunodeficiency virus [HIV] disease
[2020-06-20] MEDS: HEPARIN SODIUM/DEXTROSE 25,000 UNITS/500 ML BAG IV SCH (15:54)
[2020-06-20] MEDS ORDERED: Nursing to Pharmacy Communication SCH (18:00)
[2020-06-21] MEDS: HYDROmorphone INJ 0.5 MG/0.5 ML SYR IV PRN (04:36)
[2020-06-21 06:18] LABS: Hematocrit (blood only) 38.8 % (37-47); Hemoglobin 12.5 g/dL (12.0-16.0); Mean Corpuscular Hemoglobin 29.7 pg (25-34); Mean Corpuscular Hgb Conc 32.2 g/dL (32-36); Mean Corpuscular Volume 92.2 fL (80-100); Mean Platelet Volume 9.8 fL (7.4-10.4); Platelet Count 201 K/uL (130-400); RDW Coefficient of Variation 13.3 % (11.5-14.5); RDW Standard Deviation 44.7 fL (36.4-46.3); Red Blood Count 4.21 M/uL (4.2-5.4)
[2020-06-21 06:38] LABS: Partial Thromboplastin Ratio 1.8
[2020-06-21 06:39] LABS: Partial Thromboplastin Time 50.6 Seconds (21.0-31.0)
[2020-06-21 06:51] LABS: BUN Creatinine Ratio 16.3 (10-20); Calcium 8.7 mg/dl (8.5-10.1); Creatinine Clr Calc Pharmacy 91.8 ml/min; Est GFR (African American) 90.1; Est GFR (Non-African American) 77.7; Potassium 3.7 mmol/L (3.5-5.1)
[2020-06-21] MEDS: LIDOCAINE 5% 1 PATCH TD SCH (10:01)
[2020-06-21] MEDS: AMOXICILLIN/CLAVULANATE 875 MG TAB PO SCH ×2 (10:01→16:04)
[2020-06-21] MEDS: ONDANSETRON INJ 2 MG/ML 2 ML VIAL IV PRN (10:56)
[2020-06-21] MEDS ORDERED: NAPROXEN 250 MG TAB PO STA (12:10)
[2020-06-21] MEDS ORDERED: PANTOprazole 40 MG TAB PO ONE (12:10)
--- NOTE | 2020-06-21 12:13 | Hospitalist Progress Note ---
Date of Service June 21, 2020 Assessment & Plan (1) Pulmonary embolism: (2) HIV (human immunodeficiency virus infection): Patient is a 59-year-old female with a past medical history of HIV, asthma, uterine fibroids, possible lower extremity DVT during and venous insufficiency with recent injection form therapy presents to the ED with left shoulder pain. Patient was found to be positive for pulmonary embolism and nonocclusive DVT in the right popliteal vein. Acute pulmonary embolism Nonocclusive DVT in the right popliteal vein Possible community-acquired pneumonia. Patient denies any prior history with a DVT. Does report the mother have had h istory of DVTs denies any recent travel. Report recent lower extremity procedure intervention by vascular surgery but patient has been ambulatory. Continue with heparin at this point. Patient remains on 2.5 L of nasal cannula. Hemodynamically she is doing okay. Transthoracic echo without any right heart strain, normal EF. Given her significant chest discomfort and shortness of breath, will remain on heparin for now. Continue with Tylenol dyqqtp-ahk-emwif along with lidocaine patch. He does endorse that naproxen made her pain much better. Again ordered 1 dose of naproxen and Protonix. Try to avoid NSAIDs. Patient has also been on oxycodone and Dilaudid for pain control but is not really helping her much. He did have multiple bowel movements. Probiotic. Remains afebrile. On exam is benign. Continue with Augmentin. However, her white count is normal. Patient was afebrile. Will continue with Augmentin for now. 2. History of HIV: Continue her home medications. 3. History of anxiety: Continue with the as needed Ativan. Admission and Anticipated Discharge Date Admission Date: June 19, 2020 Subjective Patient was walking in the [place] with physical therapy prior to my arrival. Ported that she is feeling better than before however chest pain continues to be an issue. Her chest pain is mostly left sided under the left breast, sharp in nature and 9 out of 10. Reports she has pain/shortness of breath with minimal ambulation. Denies any headache or dizziness. Denies any abdominal pain. Have multiple bowel movements overnight. No nausea or vomiting. Review of Systems Review of Systems: All systems reviewed & are unremarkable except as noted in HPI & below Physical Exam Physical Exam: General: A&Ox3 HENT: NCAT, MMM, EOMI Eyes: PERRLA Neck: Supple, normal range of motion CVS: normal rate and rhythm Resp: b/l basal crackles appreciated Abdomen: Soft, nondistended and nontender Extremities: Absence of any edema Neuro: face symmetric, strength grossly equal, no focal deficit Skin: warm and dry, no rashes/lesions/errythema MSK: normal ROM, no joint swelling/erythema Results & Data Results & Data ([facility]) Vital Signs (Past 12 Hours) Vital Signs Temp Pulse Pulse Resp BP Pulse Ox 06/21/20 11:00 37.5 C 88 20 137/84 91 06/21/20 07:24 37.6 C H 85 18 113/78 93 06/21/20 07:06 84 06/21/20 03:09 36.8 C 93 H 16 118/80 95 06/21/20 00:36 81 (1) Pulmonary embolism Pulmonary embolism type: single subsegmental (without acute cor pulmonale) Qualified Code(s): I26.93 - Single subsegmental pulmonary embolism without acute cor pulmonale (2) HIV (human immunodeficiency virus infection) HIV symptom status: unspecified Qualified Code(s): B20 - Human immunodeficiency virus [HIV] disease
[2020-06-21] MEDS: ADVANCED PROBIOTIC 1250 MG CAPSULE PO SCH (13:04)
[2020-06-21] MEDS: HEPARIN SODIUM/DEXTROSE 25,000 UNITS/500 ML BAG IV SCH (13:06)
[2020-06-21] MEDS: LOPERAMIDE HCL 2 MG CAP PO PRN ×3 (13:06→19:00)
[2020-06-21] MEDS: ACETAMINOPHEN 325 MG TAB PO PRN ×2 (15:17→22:13)
[2020-06-21] MEDS: ODEFSEY PO SCH (15:34)
[2020-06-22] MEDS: LIDOCAINE 5% 1 PATCH TD SCH ×2 (06:29→06:33)
[2020-06-22 06:40] LABS: Partial Thromboplastin Ratio 1.6
[2020-06-22] MEDS: ACETAMINOPHEN 325 MG TAB PO PRN (07:51)
[2020-06-22] MEDS: AMOXICILLIN/CLAVULANATE 875 MG TAB PO SCH ×2 (07:51→17:04)
[2020-06-22] MEDS: ADVANCED PROBIOTIC 1250 MG CAPSULE PO SCH (07:52)
[2020-06-22] MEDS: HYDROmorphone INJ 0.5 MG/0.5 ML SYR IV PRN (08:50)
[2020-06-22] MEDS: HEPARIN SODIUM/DEXTROSE 25,000 UNITS/500 ML BAG IV SCH ×3 (09:34→09:37)
[2020-06-22] MEDS ORDERED: FUROSEMIDE 10 MG in SYRINGE 0 ML IV ONE (10:00)
[2020-06-22] MEDS: APIXABAN 5 MG TABLET PO SCH ×2 (10:17→19:50)
--- NOTE | 2020-06-22 12:42 | Hospitalist Progress Note ---
Date of Service June 22, 2020 Assessment & Plan (1) Pulmonary embolism: (2) HIV (human immunodeficiency virus infection): Patient is a 59-year-old female with a past medical history of HIV, asthma, uterine fibroids, possible lower extremity DVT during and venous insufficiency with recent injection form therapy presents to the ED with left shoulder pain. Patient was found to be positive for pulmonary embolism and nonocclusive DVT in the right popliteal vein. Acute pulmonary embolism Nonocclusive DVT in the right popliteal vein Possible community-acquired pneumonia. Acute hypoxic respiratory failure in the setting of PE/pneumonia and possibly diastolic heart failure Patient denies any prior history with a DVT. Does report the mother have had history of DVTs denies any recent travel. Report recent lower extremity procedure intervention by vascular surgery but patient has been ambulatory. Continue with heparin at this point. Patient remains on 2 L of nasal cannula. Hemodynamically she is doing okay. Transthoracic echo without any right heart strain, normal EF. Will discontinue heparin today and transition patient to Eliquis 10 mg twice daily followed by 5 mg twice daily. Continue with Tylenol etssfk-rye-zuolt along with lidocaine patch. Patient has also been on oxycodone and Dilaudid for pain control but is not really helping her much. Continue with Augmentin. However, her white count is normal. Patient was afebrile. Will continue with Augmentin for now. Order 1 dose of IV Lasix 20 mg today with concern for fluid overload. Monitor ins and outs along with daily weights. She was encouraged to be out of bed and ambulate. 2. History of HIV: Continue her home medications. 3. History of anxiety: Continue with the as needed Ativan. Admission and Anticipated Discharge Date Admission Date: June 19, 2020 Subjective Patient does endorse that she feels better however shortness of breath and chest discomfort remains her primary issue. Rest of the review of system is negative. Hemodynamically doing fine. Currently on 2 L of nasal cannula. Review of Systems Review of Systems: All systems reviewed & are unremarkable except as noted in HPI & below Physical Exam Physical Exam: General: A&Ox3 HENT: NCAT, MMM, EOMI Eyes: PERRLA Neck: Supple, normal range of motion CVS: normal rate and rhythm Resp: b/l basal crackles appreciated Abdomen: Soft, nondistended and nontender Extremities: Absence of any edema Neuro: face symmetric, strength grossly equal, no focal deficit Skin: warm and dry, no rashes/lesions/errythema MSK: normal ROM, no joint swelling/erythema Results & Data Results & Data ([facility]) Vital Signs (Past 12 Hours) Vital Signs Temp Pulse Pulse Resp BP Pulse Ox 06/22/20 07:50 85 06/22/20 07:38 36.8 C 78 18 107/74 93 06/22/20 03:00 37.3 C 80 18 109/73 93 (1) Pulmonary embolism Pulmonary embolism type: single subsegmental (without acute cor pulmonale) Qualified Code(s): I26.93 - Single subsegmental pulmonary embolism without acute cor pulmonale (2) HIV (human immunodeficiency virus infection) HIV symptom status: unspecified Qualified Code(s): B20 - Human immunodeficiency virus [HIV] disease
[2020-06-22 13:15] LABS: Partial Thromboplastin Ratio 1.2; Partial Thromboplastin Time 32.4 Seconds (21.0-31.0)
[2020-06-22] MEDS: ACETAMINOPHEN 325 MG TAB PO SCH ×3 (13:24→23:03)
[2020-06-22] MEDS: ODEFSEY PO SCH (17:04)
[2020-06-23] MEDS: ACETAMINOPHEN 325 MG TAB PO SCH ×3 (06:19→18:09)
[2020-06-23 06:38] LABS: Partial Thromboplastin Ratio 1.3; Partial Thromboplastin Time 36.6 Seconds (21.0-31.0)
[2020-06-23 07:00] LABS: Alanine Aminotransferase 14 U/L (12-78); Aspartate Aminotransferase 10 U/L (15-37)
[2020-06-23] MEDS: ADVANCED PROBIOTIC 1250 MG CAPSULE PO SCH (09:08)
[2020-06-23] MEDS: APIXABAN 5 MG TABLET PO SCH ×2 (09:08→20:05)
[2020-06-23] MEDS: AMOXICILLIN/CLAVULANATE 875 MG TAB PO SCH ×2 (09:08→16:40)
[2020-06-23] MEDS: LIDOCAINE 5% 1 PATCH TD SCH (09:08)
[2020-06-23 09:27] LABS: BUN Creatinine Ratio 16.2 (10-20); Creatinine Clr Calc Pharmacy 106.2 ml/min; Est GFR (African American) 107.3; Est GFR (Non-African American) 92.6; Magnesium 2.1 mg/dl (1.8-2.4); Phosphorus 3.8 mg/dl (2.5-4.9); Potassium 3.7 mmol/L (3.5-5.1)
[2020-06-23] MEDS ORDERED: FUROSEMIDE 20 MG in SYRINGE 0 ML IV ONE (09:30)
[2020-06-23 09:39] LABS: Basophils # (auto) 0.01 K/uL (0-0.2); Basophils % (auto) 0.1 %; Eosinophils # (auto) 0.18 K/uL (0-0.5); Eosinophils % (auto) 2.6 %; Hematocrit (blood only) 36.4 % (37-47); Hemoglobin 12.2 g/dL (12.0-16.0); Immature Granulocytes # (auto) 0.02 K/uL (0.00-0.02); Immature Granulocytes % (auto) 0.3 %; Lymphocytes # (auto) 0.89 K/uL (1.2-3.4); Lymphocytes % (auto) 12.7 %; Mean Corpuscular Hemoglobin 30.7 pg (25-34); Mean Corpuscular Volume 91.7 fL (80-100); Mean Platelet Volume 9.9 fL (7.4-10.4); Monocytes # (auto) 0.51 K/uL (0.11-0.59); Monocytes % (auto) 7.3 %; Neutrophils # (auto) 5.42 K/uL (1.4-6.5); Platelet Count 285 K/uL (130-400); RDW Standard Deviation 43.5 fL (36.4-46.3); Red Blood Count 3.97 M/uL (4.2-5.4); White Blood Count 7.03 K/uL (4.8-10.8)
--- NOTE | 2020-06-23 10:33 | Hospitalist Progress Note ---
Date of Service June 23, 2020 Assessment & Plan (1) Pulmonary embolism: (2) HIV (human immunodeficiency virus infection): Patient is a 59-year-old female with a past medical history of HIV, asthma, uterine fibroids, possible lower extremity DVT during and venous insufficiency with recent injection form therapy presents to the ED with left shoulder pain. Patient was found to be positive for pulmonary embolism and nonocclusive DVT in the right popliteal vein. Acute pulmonary embolism Nonocclusive DVT in the right popliteal vein Possible community-acquired pneumonia. Acute hypoxic respiratory failure in the setting of PE/pneumonia and possibly diastolic heart failure Patient denies any prior history with a DVT. Does report the mother have had history of DVTs denies any recent travel. Report recent lower extremity procedure intervention by vascular surgery but patient has been ambulatory. Continue with Eliquis 10 mg twice daily for 7 days followed by 5 mg twice daily. Patient remains on 2 L of nasal cannula. Hemodynamically she is doing okay. Transthoracic echo without any right heart strain, normal EF. Will discontinue heparin today and transition patient to Eliquis 10 mg twice daily followed by 5 mg twice daily. Continue with Tylenol [id number] along with lidocaine patch. Continue with oxycodone and Dilaudid for pain control. Continue with Augmentin. However, her white count is normal. Patient was afebrile. Will continue with Augmentin for now. Order 1 dose of IV Lasix 20 mg gain today with concern for fluid overload. Monitor ins and outs along with daily weights. She was encouraged to be out of bed and ambulate. Attempt was made to wean patient off the oxygen at rest however patient became hypoxic at 89%. Patient is reporting that she is coughing up bloody phlegm/clots globin at 12.2 today, 14.9 on admission. Possibly component of contraction from diuresis as well. Will continue to monitor. Encouraged the use of incentive spirometer. 2. History of HIV: Continue her home medications. 3. History of anxiety: Continue with the as needed Ativan. Admission and Anticipated Discharge Date Admission Date: June 19, 2020 Subjective Reports she is feeling better than before. Chest pain/shortness of breath is improved. Remains on 2 L of nasal cannula became hypoxic on room air at rest. Adequate urine output in the last 24 hours. T-Max of 38 overnight. Ports diarrhea is resolved. She is coughing up bloody phlegm. Physical Exam Physical Exam: General: A&Ox3 HENT: NCAT, MMM, EOMI Eyes: PERRLA Neck: Supple, normal range of motion CVS: normal rate and rhythm Resp: b/l basal crackles appreciated Abdomen: Soft, nondistended and nontender Extremities: Absence of any edema Neuro: face symmetric, strength grossly equal, no focal deficit Skin: warm and dry, no rashes/lesions/errythema MSK: normal ROM, no joint swelling/erythema Results & Data Results & Data ([facility]) Vital Signs (Past 12 Hours) Vital Signs Temp Pulse Pulse Resp BP BP Pulse Ox 06/23/20 07:39 89 06/23/20 07:26 37.0 C 84 20 103/70 95 06/23/20 02:20 37.1 C 86 16 115/79 94 06/23/20 01:30 37.1 C 06/22/20 22:52 38.0 C H 99 H 18 132/82 92 (1) Pulmonary embolism Pulmonary embolism type: single subsegmental (without acute cor pulmonale) Qualified Code(s): I26.93 - Single subsegmental pulmonary embolism without acute cor pulmonale (2) HIV (human immunodeficiency virus infection) HIV symptom status: unspecified Qualified Code(s): B20 - Human immunodeficiency virus [HIV] disease
[2020-06-23 10:44] LABS: Mean Corpuscular Hgb Conc 33.5 g/dL (32-36)
[2020-06-23] MEDS: ODEFSEY PO SCH (16:40)
[2020-06-24] MEDS: ACETAMINOPHEN 325 MG TAB PO SCH ×4 (00:48→18:08)
[2020-06-24 06:34] LABS: Basophils # (auto) 0.02 K/uL (0-0.2); Basophils % (auto) 0.3 %; Eosinophils # (auto) 0.21 K/uL (0-0.5); Eosinophils % (auto) 3.5 %; Hematocrit (blood only) 38.6 % (37-47); Hemoglobin 12.9 g/dL (12.0-16.0); Immature Granulocytes # (auto) 0.02 K/uL (0.00-0.02); Immature Granulocytes % (auto) 0.3 %; Lymphocytes % (auto) 13.4 %; Mean Corpuscular Hemoglobin 30.4 pg (25-34); Mean Corpuscular Hgb Conc 33.4 g/dL (32-36); Mean Platelet Volume 9.6 fL (7.4-10.4); Monocytes # (auto) 0.41 K/uL (0.11-0.59); Monocytes % (auto) 6.9 %; Neutrophils # (auto) 4.51 K/uL (1.4-6.5); Neutrophils % (auto) 75.6 %; Platelet Count 286 K/uL (130-400); RDW Coefficient of Variation 13.1 % (11.5-14.5); RDW Standard Deviation 43.8 fL (36.4-46.3); Red Blood Count 4.24 M/uL (4.2-5.4); White Blood Count 5.97 K/uL (4.8-10.8)
[2020-06-24 07:12] LABS: Albumin Level 2.8 gm/dl (3.4-5.0); BUN Creatinine Ratio 19.1 (10-20); Calcium 8.6 mg/dl (8.5-10.1); Creatinine Clr Calc Pharmacy 98.4 ml/min; Est GFR (African American) 96.6; Est GFR (Non-African American) 83.3; Potassium 3.4 mmol/L (3.5-5.1)
[2020-06-24 07:15] LABS: Albumin Globulin Ratio 0.7 (0.9-2); Bilirubin,Total 0.4 mg/dl (0.2-1); Globulin 4.2 gm/dl (2.5-4.0)
[2020-06-24] MEDS ORDERED: POTASSIUM CHLORIDE CRTAB 20 MEQ TABCR PO ONE (07:30)
[2020-06-24] MEDS: AMOXICILLIN/CLAVULANATE 875 MG TAB PO SCH (08:04)
[2020-06-24] MEDS: LIDOCAINE 5% 1 PATCH TD SCH (08:05)
[2020-06-24] MEDS: APIXABAN 5 MG TABLET PO SCH ×2 (08:05→21:46)
[2020-06-24] MEDS: ADVANCED PROBIOTIC 1250 MG CAPSULE PO SCH (08:05)
[2020-06-24] MEDS: FUROSEMIDE 20 MG TAB PO SCH ×2 (09:55→16:13)
--- NOTE | 2020-06-24 10:47 | Pulmonary Consultation ---
Date of Consultation June 24, 2020 Assessment & Plan (1) Community acquired pneumonia: I I am going to transition her to ceftriaxone and azithromycin for community-acquired pneumonia. Augmentin has been discontinued. Procalcitonin is pending. Repeat chest x-ray can be performed in 2 to 3 weeks. Continue treatment for pulmonary embolism. I suspect that she does have some degree of pulmonary infarct which is causing her pleurisy and hemoptysis. Her hemoglobin is stable. Platelet count and INR within normal limits earlier this admission. She would benefit from an outpatient hypercoagulable work-up. Obesity certainly does predispose her to future thrombotic events. She appears stable on her HIV medications and I do not think that these infiltrates represent an opportunistic infection such as PJP, however, an updated CD4 level would be beneficial to know. If she does not have clinical improvement in the next 1 to 2 days, then a bronchoscopy could be considered along with an infectious disease consult. I will order for a chest x-ray to be completed tomorrow morning. Pulmonary will continue to follow along with you. Thank you for the consult. (2) Pulmonary embolism: Pulmonary embolism type: single subsegmental (without acute cor pulmonale) Qualified Code(s): I26.93 - Single subsegmental pulmonary embolism without acute cor pulmonale (3) HIV (human immunodeficiency virus infection): HIV symptom status: unspecified Qualified Code(s): B20 - Human immunodeficiency virus [HIV] disease (4) Morbid obesity due to excess calories: (5) Hemoptysis: (6) Pulmonary infarct: (7) Pleurisy: History of Present Illness Reason for Consultation: Pneumonia and DVT in a patient with HIV Requesting Physician: Dr. Ordoñez Attending Physician: Lester Ordoñez MD History of Present Illness 44-year-old female with a past medical history of HIV on therapy who came into the hospital 06/19/2020 due to left shoulder pain and was found to have a probable pulmonary embolism in the region of the lingula on CT chest imaging 06/18/2020. Ultrasound of her lower extremities demonstrated a nonocclusive DVT in the right popliteal vein. Due to the patient's ongoing hypoxia, a CT chest without contrast was obtained the following day on 06/19/2020 which demonstrated left lower lobe airspace opacities with groundglass and consolidative changes in the inferior segment of the lingula. Today she is on 2 L of oxygen saturating 94%. White count has been within normal limits. She has mild lymphopenia. COVID-19 testing and influenza testing on admission were negative. Her most recent been unremarkable except for mild hypokalemia. Echo on 06/20/2020 was a limited study due to obesity. EF was 55 to 60%. Right ventricle was normal in size and function. I have placed an order for a procalcitonin and it is pending. The patient is currently on Augmentin 875 mg 1 tab p.o. twice daily. He is also on Eliquis 10 mg p.o. twice daily for her pulmonary embolism. She is chronically on Odefsey which is an antiviral therapy for HIV. Patient notes that she goes to the vein clinic and was told that she had a DVT several weeks ago. She notes that lately she has been having pleurisy on the left side of her chest. She was doing well a few days ago, but has developed wo rsening shortness of breath. She is very anxious. She notes that she is normally able to perform her activities of daily living without any dyspnea. She notes that she has been having some hemoptysis several times a day since Thursday. She follows with [facility] infectious disease for her HIV. She was diagnosed with HIV roughly 30 years ago. Her last CD4 count was 315 based on her [facility] MyChart which she was able to show me on her phone. She has a few dogs and cats at home. She does not have any bird exposures. No flooding at home. No open water sources. Allergies Allergy/AdvReac Type Severity Reaction Status Date / Time terconazole Allergy Intermediate Hives Verified 06/18/20 22:34 IMIDAZOLE Allergy Unknown . Uncoded 06/18/20 22:34 Home Medications Medication Instructions Recorded Confirmed Type [id number]-adkzmjeh-qeipar ala 1 tab PO DAILY 06/18/20 06/18/20 History [Odefsey] Patient History Medical History (Updated 06/24/20 @ 11:45 by Shola Perla MD) Community acquired pneumonia DVT (deep vein thrombosis) in Hemoptysis HIV (human immunodeficiency virus infection) Morbid obesity due to excess calories No pertinent family history Pleurisy Pulmonary infarct Surgical History No pertinent past surgical history Social History Smoking Status: Never smoker Hx Alcohol Use: No Hx Substance Use: No Preferred Language: Mongolian Skin Carver Required: No Beliefs That Will Affect Care: None Current Living Situation: Spouse Feels Safe at Home: Yes Safety Concerns: Feels Safe At This Time Assistive Devices: Oxygen - Continuous Review of Systems Review of Systems: All systems reviewed & are unremarkable except as noted in HPI & below Physical Exam Constitutional: WD/WN, vitals as above + obese Eyes: PERRL, conjunctivae normal, anicteric sclerae ENMT: external ear and nose normal, oropharynx normal Neck: trachea midline, no thyromegaly Respiratory: normal respiratory effort, lungs clear to auscultation Cardiovascular: RRR, no murmur, no edema Gastrointestinal (Abdomen): normal bowel sounds, soft, nontender, no hepatosplenomegaly Musculoskeletal: no cyanosis or clubbing, extremities motor strength 5/5 Skin: no rashes, warm and dry Neurologic: PERRL, EOMI, accommodation nl, no face palsy, no dysarthria Psychiatric: A+Ox3, euthymic affect Results & Data Results & Data ([facility]) Vital Signs (Past 12 Hours) Vital Signs Temp Pulse Pulse Resp BP BP Pulse Ox 06/24/20 08:00 81 06/24/20 07:57 98.6 F 78 18 125/86 94 06/24/20 03:03 98.1 F 82 18 129/84 96 06/24/20 00:25 86 I reviewed the vital signs, imaging and labs PG Care Time/CCT Total # of Minutes Spent Total Time Spent with Patient: Total time spent is greater than 50% in coordination of care (as documented) at patient's floor/unit and/or counseling patient: Coding Level of Care Code 79124 Inpt Consult Level 5 Diagnoses Community acquired pneumonia J18.9 Pulmonary embolism I26.93 Pulmonary embolism type: single subsegmental (without acute cor pulmonale) HIV (human immunodeficiency virus infection) B20 HIV symptom status: unspecified Morbid obesity due to excess calories E66.01 Hemoptysis R04.2 Pulmonary infarct I26.99 Pleurisy R09.1
--- NOTE | 2020-06-24 10:48 | Hospitalist Progress Note ---
Date of Service June 24, 2020 Assessment & Plan (1) Pulmonary embolism: (2) HIV (human immunodeficiency virus infection): Patient is a 59-year-old female with a past medical history of HIV, asthma, uterine fibroids, possible lower extremity DVT during and venous insufficiency with recent injection form therapy presents to the ED with left shoulder pain. Patient was found to be positive for pulmonary embolism and nonocclusive DVT in the right popliteal vein. Acute pulmonary embolism Nonocclusive DVT in the right popliteal vein Possible community-acquired pneumonia. Acute hypoxic respiratory failure in the setting of PE/pneumonia and possibly diastolic heart failure Patient denies any prior history with a DVT. Does report the mother have had history of DVTs denies any recent travel. Report recent lower extremity procedure intervention by vascular surgery but patient has been ambulatory. Continue with Eliquis 10 mg twice daily for 7 days followed by 5 mg twice daily. Patient remains on 2 L of nasal cannula. Hemodynamically she is doing okay. Transthoracic echo without any right heart strain, normal EF. Continue with Tylenol [id number] along with lidocaine patch. Continue with oxycodone and Dilaudid for pain control. Continue with Augmentin. However, her white count is normal. Patient was afebrile. Will continue with Augmentin for now. Started patient on p.o. Lasix 20 mg twice daily. Monitor ins and outs along wit h daily weights. She was encouraged to be out of bed and ambulate. Attempt was made to wean patient off the oxygen at rest however patient became hypoxic at 89%. Patient is reporting that she is coughing up bloody phlegm/clots hemoglobin at 12.9 today, 14.9 on admission. Given the fact the patient is still hypoxic in the setting of new PE, will consider pulmonary input. Encouraged the use of incentive spirometer. 2. History of HIV: Continue her home medications. 3. History of anxiety: Continue with the as needed Ativan. Admission and Anticipated Discharge Date Admission Date: June 19, 2020 Subjective Doing okay this morning. Reports Lasix seems to help her. Reports she feels better than she came in with with shortness of breath and cough. Remains afebrile. Currently on 2 L of nasal cannula. Diarrhea is resolved. Review of Systems Review of Systems: All systems reviewed & are unremarkable except as noted in HPI & below Physical Exam Physical Exam: General: A&Ox3 HENT: NCAT, MMM, EOMI Eyes: PERRLA Neck: Supple, normal range of motion CVS: normal rate and rhythm Resp: b/l basal crackles appreciated Abdomen: Soft, nondistended and nontender Extremities: Absence of any edema Neuro: face symmetric, strength grossly equal, no focal deficit Skin: warm and dry, no rashes/lesions/errythema MSK: normal ROM, no joint swelling/erythema Results & Data Results & Data ([facility]) Vital Signs (Past 12 Hours) Vital Signs Temp Pulse Pulse Resp BP BP Pulse Ox 06/24/20 08:00 81 06/24/20 07:57 37.0 C 78 18 125/86 94 06/24/20 03:03 36.7 C 82 18 129/84 96 06/24/20 00:25 86 (1) Pulmonary embolism Pulmonary embolism type: single subsegmental (without acute cor pulmonale) Qualified Code(s): I26.93 - Single subsegmental pulmonary embolism without acute cor pulmonale (2) HIV (human immunodeficiency virus infection) HIV symptom status: unspecified Qualified Code(s): B20 - Human immunodeficiency virus [HIV] disease
[2020-06-24] MEDS ORDERED: AZITHROMYCIN 500 MG in DEXTROSE 5% 250 ML IV ONE (12:00)
[2020-06-24] MEDS: cefTRIAXone SODIUM 2,000 MG in DEXTROSE 5% 50 ML IV SCH (12:29)
[2020-06-24] MEDS: ODEFSEY PO SCH (16:12)
--- NOTE | 2020-06-24 20:40 | Communication Note ---
Date of Service: June 24, 2020 Was notified by RN at 3:53 PM that patient wasnts to speak regardig COVID test. I spoke with the patiet and listned to her concerns. She wanted full RVP PCR test rather than rapid antigen test. I did emphasize that her that I don't have concerns for covid. However, patient as still requesting for full PCR. Given her H/O HIV. It was resonable concern. I attmped the order the full PCR was it was not avaible in [place]. Spoke with colleagues who stated to order [facility] test. However, this test was not avaible in [place]. Was again notified at 6:18 that patient feels as if she is not getting the best care possible. I spoke with her again and stated that I have been trying to contact the lab to get this test done. Spoke with lab services, they asked to speak with one of the supervisors to have the test approved before ordring it. Was evenutally able to get hold of Dr. Celestin who approved the test. Was able to order the test under [facility]. COVID test. Spoke the the nursing staff multiple times and updated the patinet as well.
[2020-06-24 21:18] LABS: Adenovirus PCR Not Detected (NotDetected); Bordetella parapertussis PCR Not Detected (NotDetected); Bordetella pertussis PCR Not Detected (NotDetected); Chlamydia pneumoniae PCR Not Detected (NotDetected); Coronavirus 229E PCR Not Detected (NotDetected); Coronavirus CoV-2 (COVID19)PCR Not Detected (NotDetected); Coronavirus HKU1 PCR Not Detected (NotDetected); Coronavirus NL63 PCR Not Detected (NotDetected); Coronavirus OC43PCR Not Detected (NotDetected); Human Metapneumovirus PCR Not Detected (NotDetected); Influenza A PCR Not Detected (NotDetected); Influenza B PCR Not Detected (NotDetected); Mycoplasma pneumoniae PCR Not Detected (NotDetected); Parainfluenza Virus 1 PCR Not Detected (NotDetected); Parainfluenza Virus 2 PCR Not Detected (NotDetected); Parainfluenza Virus 3 PCR Not Detected (NotDetected); Parainfluenza Virus 4 PCR Not Detected (NotDetected); Respiratory Syncytial VirusPCR Not Detected (NotDetected); Rhinovirus/Enterovirus PCR Not Detected (NotDetected)
[2020-06-25] MEDS: ACETAMINOPHEN 325 MG TAB PO SCH ×4 (02:12→18:33)
[2020-06-25 06:58] LABS: Basophils # (auto) 0.03 K/uL (0-0.2); Basophils % (auto) 0.5 %; Eosinophils # (auto) 0.09 K/uL (0-0.5); Eosinophils % (auto) 1.4 %; Hematocrit (blood only) 40.1 % (37-47); Hemoglobin 13.4 g/dL (12.0-16.0); Immature Granulocytes # (auto) 0.03 K/uL (0.00-0.02); Immature Granulocytes % (auto) 0.5 %; Lymphocytes # (auto) 0.97 K/uL (1.2-3.4); Lymphocytes % (auto) 15.1 %; Mean Corpuscular Hemoglobin 30.2 pg (25-34); Mean Corpuscular Hgb Conc 33.4 g/dL (32-36); Mean Corpuscular Volume 90.3 fL (80-100); Mean Platelet Volume 9.4 fL (7.4-10.4); Monocytes # (auto) 0.35 K/uL (0.11-0.59); Monocytes % (auto) 5.4 %; Neutrophils # (auto) 4.96 K/uL (1.4-6.5); Neutrophils % (auto) 77.1 %; Platelet Count 328 K/uL (130-400); RDW Coefficient of Variation 12.7 % (11.5-14.5); RDW Standard Deviation 42.2 fL (36.4-46.3); Red Blood Count 4.44 M/uL (4.2-5.4); White Blood Count 6.43 K/uL (4.8-10.8)
[2020-06-25 07:27] LABS: Albumin Level 3.2 gm/dl (3.4-5.0); BUN Creatinine Ratio 15.7 (10-20); Calcium 9.4 mg/dl (8.5-10.1); Creatinine Clr Calc Pharmacy 84.5 ml/min; Est GFR (African American) 82.2; Est GFR (Non-African American) 70.9; Potassium 3.5 mmol/L (3.5-5.1)
[2020-06-25 07:30] LABS: Albumin Globulin Ratio 0.7 (0.9-2); Bilirubin,Total 0.5 mg/dl (0.2-1); Globulin 4.7 gm/dl (2.5-4.0); Total Protein 7.9 gm/dl (6.4-8.2)
[2020-06-25] MEDS: LIDOCAINE 5% 1 PATCH TD SCH (07:58)
[2020-06-25] MEDS: FUROSEMIDE 20 MG TAB PO SCH ×2 (07:59→17:07)
[2020-06-25] MEDS: APIXABAN 5 MG TABLET PO SCH ×2 (07:59→19:37)
[2020-06-25] MEDS: ADVANCED PROBIOTIC 1250 MG CAPSULE PO SCH (07:59)
--- NOTE | 2020-06-25 11:43 | Hospitalist Progress Note ---
Date of Service June 25, 2020 Assessment & Plan (1) Pulmonary embolism: (2) HIV (human immunodeficiency virus infection): Patient is a 59-year-old female with a past medical history of HIV, asthma, uterine fibroids, possible lower extremity DVT during and venous insufficiency with recent injection form therapy presents to the ED with left shoulder pain. Patient was found to be positive for pulmonary embolism and nonocclusive DVT in the right popliteal vein. Acute pulmonary embolism Nonocclusive DVT in the right popliteal vein Possible community-acquired pneumonia. Acute hypoxic respiratory failure in the setting of PE/pneumonia and possibly diastolic heart failure Patient was notified regarding her PCR test last night. COVID-19 again. Patient is very tearful this morning because of issues with staff overnight. Patient does appear more anxious today. I offered patient anything that I can do within my capacity to make her stay better. Continues to require 2 L of nasal cannula. Reports shortness of breath and chest pain is better. Thoracic medicine is on board. Pain is pleuritic in nature likely secondary to infarction. Continue Tylenol yaytkt-jyy-[id number] along with oxycodone and Dilaudid. Courage her to ambulate in the hallway along with incentive spirometer. Doing ceftriaxone and azithromycin as per pulmonary medicine. Consult infectious disease for their input regarding any opportunistic infection concerns. CD4 count is pending Patient denies any prior history with a DVT. Does report the mother have had history of DVTs denies any recent travel. Report recent lower extremity procedure intervention by vascular surgery but patient has been ambulatory. Have had intermittent episodes of bloody phlegm. Hemoglobin remains stable. Encouraged the use of incentive spirometer. 2. History of HIV: Continue her home medications. 3. History of anxiety: Continue with the as needed Ativan. Admission and Anticipated Discharge Date Admission Date: June 19, 2020 Subjective Patient is very tearful this morning. Reports that she had a rough night with the staff. Reports she does not feel she is getting any better. Patient was also upset at the fact that her admission presentation documentation was note what her actual presentation was. She reports that she was having left shoulder pain only for half an hour prior to coming into the hospital but is reported that she was having the pain for a few weeks. She does report that her shortness of breath and chest pain is better but it is still present. Continues to require 2 L of nasal cannula. Denies any abdominal pain, diarrhea or dysuria. Review of Systems Review of Systems: All systems reviewed & are unremarkable except as noted in HPI & below Physical Exam Physical Exam: General: A&Ox3 HENT: NCAT, MMM, EOMI Eyes: PERRLA Neck: Supple, normal range of motion CVS: normal rate and rhythm Resp: b/l decreased breath sounds Abdomen: Soft, nondistended and nontender Extremities: Absence of any edema Neuro: face symmetric, strength grossly equal, no focal deficit Skin: warm and dry MSK: normal ROM Results & Data Results & Data ([facility]) Vital Signs (Past 12 Hours) Vital Signs Temp Pulse Pulse Resp BP Pulse Ox 06/25/20 07:43 89 06/25/20 07:40 36.9 C 89 20 129/85 92 06/25/20 02:21 87 (1) HIV (human immunodeficiency virus infection) HIV symptom status: unspecified Qualified Code(s): B20 - Human immunodeficiency virus [HIV] disease (2) Pulmonary embolism Pulmonary embolism type: single subsegmental (without acute cor pulmonale) Qualified Code(s): I26.93 - Single subsegmental pulmonary embolism without acute cor pulmonale
[2020-06-25] MEDS: cefTRIAXone SODIUM 2,000 MG in DEXTROSE 5% 50 ML IV SCH (11:59)
--- NOTE | 2020-06-25 13:57 | Pulmonology Progress Note ---
Date of Service June 25, 2020 Assessment & Plan (1) Community acquired pneumonia: CT chest 06/19/2020 personally reviewed: Dense consolidative process of the left lower lobe, atelectasis of the right lower lobe, minimal groundglass the patient initiated in the inferior segment of the lingula No mediastinal adenopathy. --Acute hypoxic respiratory failure Multifactorial Component of PE as well as left lower lobe consolidative process Pulmonary infarct might also be playing a role COVID-19 PCR as well as bio fire 06/24/2020:- negative Procalcitonin 0.05 Patient last CD4 count was 325 around February 2020 Given the dense consolidative process I would continue with antibiotics for total of 5 days Patient is a lifetime non-smoker. The last time she had pneumonia was more than 10 years ago for which she was admitted to the hospital. --Hemoptysis Likely secondary to underlying pneumonia with PE Monitor H&H Antitussive medication --Morbid obesity Outpatient polysomnography --History of HIV CD4 count greater than 200 Plan: Incentive spirometry Continue with antibiotics for total of 5 days Antitussive medications as needed Physical therapy Given the dense consolidative process and CD4 count greater than 200, the likelihood of any opportunistic infection is very low. No plans for bronchoscopy for the time being Follow-up chest x-ray tomorrow. Case was discussed with Dr. Ordoñez. Please note the above document was generated using voice recognition software. It may contain grammatical, syntax or spelling errors.Any formal questions or concerns about the content, text or information contained within the body of this dictation should be directly addressed to the provider for clarification. (2) Pulmonary embolism: Pulmonary embolism type: single subsegmental (without acute cor pulmonale) Qualified Code(s): I26.93 - Single subsegmental pulmonary embolism without acute cor pulmonale (3) HIV (human immunodeficiency virus infection): HIV symptom status: unspecified Qualified Code(s): B20 - Human immunodeficiency virus [HIV] disease (4) Hemoptysis: Admission and Anticipated Discharge Date Admission Date: June 19, 2020 Subjective Seen and examined at bedside. No acute distress. Patient states she had no hemoptysis today. She still complains of mild discomfort on the left side especially on taking deep breath. Patient is using incentive spirometer but able to go up to only find edema. She was emotional during examination but easily consolable. No headache, no nausea, no vomiting. Review of Systems Review of Systems: All systems reviewed & are unremarkable except as noted in Subjective Physical Exam Physical Exam: Constitutional: No acute distress HEENT: EOMI, PERRLA Respiratory system: Decreased air entry bilaterally, no wheeze, no rhonchi, positive crackles bilateral lower lobes CVS: S1-S2 positive, no murmurs or gallops Abdomen: Soft, nontender, nondistended, positive bowel sounds x4 Extremities: +2 pulses bilaterally radialis/ dorsalis pedis, no cyanosis, no edema Neuro: Awake alert oriented x3 Psych: Normal mood and affect G/U: No [place] Skin: no rashes, warm and dry Lymphatic: no cervical or axillary lymphadenopathy Results & Data Results & Data ([facility]) Vital Signs (Past 12 Hours) Vital Signs Temp Pulse Pulse Resp BP Pulse Ox 06/25/20 11:46 37.0 C 99 H 22 138/99 90 06/25/20 07:43 89 06/25/20 07:40 36.9 C 89 20 129/85 92 06/25/20 02:21 87 06/25/20 06:16 06/25/20 06:16 PG Care Time/CCT Total # of Minutes Spent Total Time Spent with Patient: Total time spent is greater than 50% in coordination of care (as documented) at patient's floor/unit and/or counseling patient: Coding Level of Care Code 51068 Subseq Hosp Care Lvl 3 Diagnoses Community acquired pneumonia J18.9 Pulmonary embolism I26.93 Pulmonary embolism type: single subsegmental (without acute cor pulmonale) HIV (human immunodeficiency virus infection) B20 HIV symptom status: unspecified Hemoptysis R04.2
--- NOTE | 2020-06-25 14:23 | XRay Report ---
XR chest 2V PA/lateral HISTORY: 44 years-old Female pneumonia acute shortness of breath COMPARISON: Chest radiograph and chest CT 06/19/2019 TECHNIQUE: PA and lateral views of the chest FINDINGS: Moderately improved aeration of the lungs. Mild left greater than right bibasilar opacities with smal l pleural effusions. Cardiac silhouette is mildly enlarged. Mild persistent interstitial coarsening. No pneumothorax. Bones appear grossly intact. Biopsy clip projects over the left breast. IMPRESSION: Small pleural effusions with left greater than right bibasilar opacities suggestive of at electasis versus pneumonitis. ACT 112: Negative or not required by law. The above report was generated using voice recognition software. It may contain grammatical, syntax o r spelling errors. Electronically signed by: Justin Mclean M.D. 06/25/2020 2:22 PM
[2020-06-25] MEDS: AZITHROMYCIN 250 MG TAB PO SCH (15:21)
[2020-06-25] MEDS: ODEFSEY PO SCH (17:04)
[2020-06-26] MEDS: ACETAMINOPHEN 325 MG TAB PO SCH ×2 (00:35→06:21)
[2020-06-26 07:08] LABS: Basophils # (auto) 0.02 K/uL (0-0.2); Basophils % (auto) 0.4 %; Eosinophils # (auto) 0.23 K/uL (0-0.5); Eosinophils % (auto) 4.5 %; Hematocrit (blood only) 37.9 % (37-47); Hemoglobin 12.6 g/dL (12.0-16.0); Immature Granulocytes # (auto) 0.02 K/uL (0.00-0.02); Immature Granulocytes % (auto) 0.4 %; Lymphocytes # (auto) 1.07 K/uL (1.2-3.4); Lymphocytes % (auto) 20.8 %; Mean Corpuscular Hemoglobin 30.1 pg (25-34); Mean Corpuscular Hgb Conc 33.2 g/dL (32-36); Mean Corpuscular Volume 90.7 fL (80-100); Mean Platelet Volume 9.2 fL (7.4-10.4); Monocytes # (auto) 0.44 K/uL (0.11-0.59); Monocytes % (auto) 8.5 %; Neutrophils # (auto) 3.37 K/uL (1.4-6.5); Neutrophils % (auto) 65.4 %; Platelet Count 273 K/uL (130-400); RDW Coefficient of Variation 12.7 % (11.5-14.5); Red Blood Count 4.18 M/uL (4.2-5.4); White Blood Count 5.15 K/uL (4.8-10.8)
--- NOTE | 2020-06-26 07:40 | XRay Report ---
XR chest 1V portable CLINICAL HISTORY: f/u COMPARISON STUDY: Chest CT June 19, 2020 chest radiograph June 25, 2020. FINDINGS: Low lung volumes are again noted. There is no pneumothorax. Small bilateral pleural effusio ns with bibasilar opacities, greater on the left, persists. Cardiomediastinal silhouette is stable. T here is no evidence for pulmonary edema. IMPRESSION: No significant change in low lung volumes with small bilateral pleural effusions and bib asilar opacities which may reflect pneumonia or atelectasis. ACT 112: Negative or not required by law. Electronically signed by: Alex Ross M.D. 06/26/2020 7:39 AM
[2020-06-26 07:42] LABS: Albumin Level 2.9 gm/dl (3.4-5.0); BUN Creatinine Ratio 25.1 (10-20); Calcium 8.8 mg/dl (8.5-10.1); Creatinine Clr Calc Pharmacy 91.1 ml/min; Est GFR (African American) 90.1; Est GFR (Non-African American) 77.7; Potassium 3.7 mmol/L (3.5-5.1)
[2020-06-26 07:44] LABS: Albumin Globulin Ratio 0.7 (0.9-2); Bilirubin,Total 0.5 mg/dl (0.2-1); Globulin 4.1 gm/dl (2.5-4.0)
[2020-06-26] MEDS: APIXABAN 5 MG TABLET PO SCH ×2 (08:09→20:53)
[2020-06-26] MEDS: FUROSEMIDE 20 MG TAB PO SCH ×2 (08:09→16:44)
[2020-06-26] MEDS: ADVANCED PROBIOTIC 1250 MG CAPSULE PO SCH (08:09)
[2020-06-26] MEDS: AZITHROMYCIN 250 MG TAB PO SCH (08:10)
[2020-06-26] MEDS: LIDOCAINE 5% 1 PATCH TD SCH (08:11)
[2020-06-26] MEDS ORDERED: ACETAMINOPHEN 325 MG TAB PO PRN (09:34)
--- NOTE | 2020-06-26 11:02 | Hospitalist Progress Note ---
Date of Service June 26, 2020 Assessment & Plan (1) Pulmonary embolism: (2) HIV (human immunodeficiency virus infection): Patient is a 59-year-old female with a past medical history of HIV, asthma, uterine fibroids, possible lower extremity DVT during and venous insufficiency with recent injection form therapy presents to the ED with left shoulder pain. Patient was found to be positive for pulmonary embolism and nonocclusive DVT in the right popliteal vein. Acute pulmonary embolism/infarction Nonocclusive DVT in the right popliteal vein Possible community-acquired pneumonia. Acute hypoxic respiratory failure in the setting of PE/pneumonia and possibly di astolic heart failure Bio fire from 06/24 - for any Covid. P Continues to require 2 L of nasal cannula. Reports shortness of breath and chest pain is improving from before. Thoracic medicine is on board. Pain is pleuritic in nature likely secondary to infarction. Continue Tylenol [id number] along with oxycodone and Dilaudid. Courage her to ambulate in the hallway along with incentive spirometer. Doing ceftriaxone and azithromycin as per pulmonary medicine. Factious disease evaluation is pending for their input regarding any opportunistic infection concerns. CD4 count is pending Patient denies any prior history with a DVT. Does report the mother have had history of DVTs denies any recent travel. Report recent lower extremity procedure intervention by vascular surgery but patient has been ambulatory. Have had intermittent episodes of bloody phlegm. However, it is improving and hemoglobin remains stable. Encouraged the use of incentive spirometer. 2. History of HIV: Continue her home medications. 3. History of anxiety: Continue with the as needed Ativan. Admission and Anticipated Discharge Date Admission Date: June 19, 2020 Subjective Patient reports shortness of breath and cough along with her chest pain is better than before. She was able to get up and walk to the bathroom today. Did ambulate in the hallway yesterday with oxygen. Reports last night she was given tea that had an unusual reaction for her and thought she possibly could have been "drugged". Reports bloody phlegm is significantly improved Review of Systems Review of Systems: All systems reviewed & are unremarkable except as noted in HPI & below Physical Exam Physical Exam: General: A&Ox3 HENT: NCAT, MMM, EOMI Eyes: PERRLA Neck: Supple, normal range of motion CVS: normal rate and rhythm Resp: b/l decreased breath sounds Abdomen: Soft, nondistended and nontender Extremities: Absence of any edema Neuro: face symmetric, strength grossly equal, no focal deficit Skin: warm and dry MSK: normal ROM Results & Data Results & Data ([facility]) Vital Signs (Past 12 Hours) Vital Signs Temp Pulse Pulse Pulse Resp BP Pulse Ox 06/26/20 09:31 69 06/26/20 07:50 36.6 C 78 18 146/103 H 93 06/26/20 03:00 36.8 C 75 18 132/85 93 06/25/20 23:33 36.9 C 71 17 120/80 96 (1) Pulmonary embolism Pulmonary embolism type: single subsegmental (without acute cor pulmonale) Qualified Code(s): I26.93 - Single subsegmental pulmonary embolism without acute cor pulmonale (2) HIV (human immunodeficiency virus infection) HIV symptom status: unspecified Qualified Code(s): B20 - Human immunodeficiency virus [HIV] disease
[2020-06-26] MEDS: cefTRIAXone SODIUM 2,000 MG in DEXTROSE 5% 50 ML IV SCH (11:58)
--- NOTE | 2020-06-26 13:32 | Pulmonology Progress Note ---
Date of Service June 26, 2020 Assessment & Plan (1) Community acquired pneumonia: CT chest 06/19/2020 personally reviewed: Dense consolidative process of the left lower lobe, atelectasis of the right lower lobe, minimal groundglass the patient initiated in the inferior segment of the lingula No mediastinal adenopathy. --Acute hypoxic respiratory failure Multifactorial Component of PE as well as left lower lobe consolidative process Pulmonary infarct might also be playing a role COVID-19 PCR as well as bio fire 06/24/2020:- negative Procalcitonin 0.05 Patient last CD4 count was 325 around February 2020 Given the dense consolidative process I would continue with antibiotics for total of 5 days Patient is a lifetime non-smoker. The last time she had pneumonia was more than 10 years ago for which she was admitted to the hospital. --Hemoptysis Likely secondary to underlying pneumonia with PE Monitor H&H Antitussive medication --Morbid obesity Outpatient polysomnography --History of HIV CD4 count greater than 200 Plan: Patient is clinically doing better. Chest x-ray from today still shows poor inspiratory effort. Continue with diuretics to keep the patient negative balance Incentive spirometry Antitussive medications as needed Physical therapy Given the dense consolidative process and CD4 count greater than 200, the lik elihood of any opportunistic infection is very low. No plans for bronchoscopy Please note the above document was generated using voice recognition software. It may contain grammatical, syntax or spelling errors.Any formal questions or concerns about the content, text or information contained within the body of this dictation should be directly addressed to the provider for clarification. (2) Pulmonary embolism: Pulmonary embolism type: single subsegmental (without acute cor pulmonale) Qualified Code(s): I26.93 - Single subsegmental pulmonary embolism without acute cor pulmonale (3) HIV (human immunodeficiency virus infection): HIV symptom status: unspecified Qualified Code(s): B20 - Human immunodeficiency virus [HIV] disease (4) Hemoptysis: Admission and Anticipated Discharge Date Admission Date: June 19, 2020 Subjective Patient seen and examined at bedside. No acute distress. Patient states that she is feeling better. She is using spirometry more often now with good technique. Denies any chest pain. She did cough up a clot once. Shortness of breath is improved. Patient has been walking around. Review of Systems Review of Systems: All systems reviewed & are unremarkable except as noted in Subjective Physical Exam Physical Exam: Constitutional: No acute distress HEENT: EOMI, PERRLA Respiratory system: Decreased air entry bilaterally, no wheeze, no rhonchi, positive crackles bilateral lower lobes CVS: S1-S2 positive, no murmurs or gallops Abdomen: Soft, nontender, nondistended, positive bowel sounds x4 Extremities: +2 pulses bilaterally radialis/ dorsalis pedis, no cyanosis, no edema Neuro: Awake alert oriented x3 Psych: Normal mood and affect G/U: No Solorio Skin: no rashes, warm and dry Lymphatic: no cervical or axillary lymphadenopathy Results & Data Results & Data ([facility]) Vital Signs (Past 12 Hours) Vital Signs Temp Pulse Pulse Pulse Resp BP BP 06/26/20 11:11 37.0 C 82 18 127/81 06/26/20 09:31 69 06/26/20 07:50 36.6 C 78 18 146/103 H 06/26/20 03:00 36.8 C 75 18 132/85 Pulse Ox 06/26/20 11:11 93 06/26/20 09:31 06/26/20 07:50 93 06/26/20 03:00 93 06/26/20 06:57 06/26/20 06:57 PG Care Time/CCT Total # of Minutes Spent Total Time Spent with Patient: Total time spent is greater than 50% in coordination of care (as documented) at patient's floor/unit and/or counseling patient: Coding Level of Care Code 98042 Subseq Hosp Care Lvl 3 Diagnoses Community acquired pneumonia J18.9 Pulmonary embolism I26.93 Pulmonary embolism type: single subsegmental (without acute cor pulmonale) HIV (human immunodeficiency virus infection) B20 HIV symptom status: unspecified Hemoptysis R04.2
[2020-06-26] MEDS: ODEFSEY PO SCH (16:43)
[2020-06-27] MEDS: ACETAMINOPHEN 325 MG TAB PO PRN (00:50)
[2020-06-27] MEDS: APIXABAN 5 MG TABLET PO SCH ×2 (07:52→20:25)
[2020-06-27] MEDS: FUROSEMIDE 20 MG TAB PO SCH ×2 (07:53→16:17)
[2020-06-27] MEDS: AZITHROMYCIN 250 MG TAB PO SCH (07:53)
[2020-06-27] MEDS: ADVANCED PROBIOTIC 1250 MG CAPSULE PO SCH (07:54)
[2020-06-27] MEDS: LIDOCAINE 5% 1 PATCH TD SCH (07:54)
--- NOTE | 2020-06-27 09:26 | Pulmonology Progress Note ---
Date of Service June 27, 2020 Assessment & Plan (1) Community acquired pneumonia: CT chest 06/19/2020 personally reviewed: Dense consolidative process of the left lower lobe, atelectasis of the right lower lobe, minimal groundglass the patient initiated in the inferior segment of the lingula No mediastinal adenopathy. --Acute hypoxic respiratory failure Multifactorial Component of PE as well as left lower lobe consolidative process Pulmonary infarct might also be playing a role COVID-19 PCR as well as bio fire 06/24/2020:- negative Procalcitonin 0.05 Patient last CD4 count was 325 around February 2020 Given the dense consolidative process I would continue with antibiotics for total of 5 days Patient is a lifetime non-smoker. The last time she had pneumonia was more than 10 years ago for which she was admitted to the hospital. --Hemoptysis Likely secondary to underlying pneumonia with PE Monitor H&H Antitussive medication --Morbid obesity Outpatient polysomnography --History of HIV CD4 count greater than 200 Plan: Patient was saturating 93% on room air at the time of examination. Continue with aggressive incentive spirometry Antitussive medications as needed Follow-up chest x-ray from today Given the dense consolidative process and CD4 count greater than 200, the likelihood of any opportunistic infection is very low. No plans for bronchoscopy Please note the above document was generated using voice recognition software. It may contain grammatical, syntax or spelling errors.Any formal questions or concerns about the content, text or information contained within the body of this dictation should be directly addressed to the provider for clarification. (2) Pulmonary embolism: Pulmonary embolism type: single subsegmental (without acute cor pulmonale) Qualified Code(s): I26.93 - Single subsegmental pulmonary embolism without acute cor pulmonale (3) HIV (human immunodeficiency virus infection): HIV symptom status: unspecified Qualified Code(s): B20 - Human immunodeficiency virus [HIV] disease (4) Hemoptysis: Admission and Anticipated Discharge Date Admission Date: June 19, 2020 Subjective Patient seen and examined at bedside. No acute distress, no adverse events overnight. Patient was saturating 93% on room air at the time of examination. She is using incentive spirometry. She complains of cough but it has decreased in amount. No more hemoptysis. Urinating well. Chest discomfort is there on deep inspiration but has not needed any medications for it. Review of Systems Review of Systems: All systems reviewed & are unremarkable except as noted in Subjective Physical Exam Physical Exam: Constitutional: No acute distress HEENT: EOMI, PERRLA Respiratory system: Decreased air entry bilaterally, no wheeze, no rhonchi, positive crackles bilateral lower lobes CVS: S1-S2 positive, no murmurs or gallops Abdomen: Soft, nontender, nondistended, positive bowel sounds x4 Extremities: +2 pulses bilaterally radialis/ dorsalis pedis, no cyanosis, no edema Neuro: Awake alert oriented x3 Psych: Normal mood and affect G/U: No Solorio Skin: no rashes, warm and dry Lymphatic: no cervical or axillary lymphadenopathy Results & Data Results & Data ([facility]) Vital Signs (Past 12 Hours) Vital Signs Temp Pulse Resp BP Pulse Ox 06/27/20 07:17 36.5 C 69 18 105/75 92 06/27/20 04:29 36.7 C 72 18 106/67 94 06/26/20 22:51 37 C 95 H 18 143/85 H 94 06/26/20 06:57 06/26/20 06:57 PG Care Time/CCT Total # of Minutes Spent Total Time Spent with Patient: Total time spent is greater than 50% in coordination of care (as documented) at patient's floor/unit and/or counseling patient: Coding Level of Care Code 75620 Subseq Hosp Care Lvl 3 Diagnoses Community acquired pneumonia J18.9 Pulmonary embolism I26.93 Pulmonary embolism type: single subsegmental (without acute cor pulmonale) HIV (human immunodeficiency virus infection) B20 HIV symptom status: unspecified Hemoptysis R04.2
--- NOTE | 2020-06-27 10:16 | XRay Report ---
XR chest 1V portable HISTORY: 44 years-old Female f/u acute shortness of breath. COMPARISON: Chest radiograph 06/26/2020 TECHNIQUE: Portable AP view of the chest FINDINGS: Cardiac silhouette is enlarged. Small pleural effusions with persistent linear bibasilar opacities. N o pneumothorax or overt pulmonary edema. Bones appear grossly intact. IMPRESSION: Stable exam with persistent small pleural effusions and left greater then right bibasilar opacities suggestive of probable atelectasis. Pneumonia could appear similarly. ACT 112: Negative or not required by law. The above report was generated using voice recognition software. It may contain grammatical, syntax o r spelling errors. Electronically signed by: Justin Mclean M.D. 06/27/2020 10:15 AM
[2020-06-27] MEDS: cefTRIAXone SODIUM 2,000 MG in DEXTROSE 5% 50 ML IV SCH (13:10)
[2020-06-27] MEDS: ODEFSEY PO SCH (16:17)
[2020-06-27 17:16] LABS: Influenza A virus by PCR Negative (Neg); Influenza B virus by PCR Negative (Neg); RSV by PCR Negative (Neg); SARS CoV2 RNA(COVID-19) InHosp NEGATIVE (Negative)
--- NOTE | 2020-06-27 17:54 | Hospitalist Progress Note ---
Date of Service June 27, 2020 Assessment & Plan (1) Pulmonary embolism: 44 yo F admitted with left sided pleuritic chest pain CTA of chest positive for pulmonary embolism and nonocclusive DVT in the right popliteal vein. on eliquis (2) HIV (human immunodeficiency virus infection): Acute pulmonary embolism/infarction Nonocclusive DVT in the right popliteal vein Possible community-acquired pneumonia. Acute hypoxic respiratory failure in the setting of PE/pneumonia and possibly diastolic heart failure COVID 19 test negative on ceftriaxone and azithromycin appreciate input from Pulmonology and iD History of HIV: Continue her home medications.CD4 count 200 follows with [facility] Infectious disease , appreciate input from ID anxiety disorder : Continue with the as needed Ativan. FULL CODE Disposition plan to discharge home in next 24-48 hrs if continues to improve medically 2 step exercise in am ordered to assess home 02 needs Admission and Anticipated Discharge Date Admission Date: June 19, 2020 Subjective Follow up visit for acute hypoxemic resp failure /acute PE /pneumonia : pt reports of feeling much better has not required oxygen the whole day , no fever or chills no Cough feels short of breath while walking on hallway requiring frequent rest no chest pain , no orthopnea anxious about her current diagnosis repeat COVID 19 test ordered -as pt insisted to have tested again before returning home -worried about health and risk of infection to family members repeat COVID 19 PCR today 06/27/20 -negative pt updated regarding test result Review of Systems Review of Systems: All systems reviewed & are unremarkable except as noted in Subjective Physical Exam Constitutional: WD/WN, vitals as above Eyes: PERRL, conjunctivae normal, anicteric sclerae ENMT: external ear and nose normal, oropharynx normal Neck: trachea midline, no thyromegaly Respiratory: normal respiratory effort; no respiratory distress and no cough Cardiovascular: RRR, no murmur, no edema Gastrointestinal (Abdomen): normal bowel sounds, soft, nontender, no hepatosp lenomegaly Musculoskeletal: no cyanosis or clubbing, extremities motor strength 5/5 Skin: no rashes, warm and dry Neurologic: PERRL, EOMI, accommodation nl, no face palsy, no dysarthria Psychiatric: A+Ox3, euthymic affect Results & Data Results & Data ([facility]) Vital Signs (Past 12 Hours) Vital Signs Temp Pulse Pulse Resp BP BP Pulse Ox 06/27/20 16:46 104 H 06/27/20 15:08 37.1 C 92 H 18 118/82 91 06/27/20 11:38 36.7 C 70 18 126/83 90 06/27/20 07:17 36.5 C 69 18 105/75 92 (1) HIV (human immunodeficiency virus infection) HIV symptom status: unspecified Qualified Code(s): B20 - Human immunodeficiency virus [HIV] disease (2) Pulmonary embolism Pulmonary embolism type: single subsegmental (without acute cor pulmonale) Qualified Code(s): I26.93 - Single subsegmental pulmonary embolism without acute cor pulmonale
[2020-06-28] MEDS: APIXABAN 5 MG TABLET PO SCH (08:18)
[2020-06-28] MEDS: FUROSEMIDE 20 MG TAB PO SCH (08:18)
[2020-06-28] MEDS: LIDOCAINE 5% 1 PATCH TD SCH (08:18)
[2020-06-28] MEDS: ADVANCED PROBIOTIC 1250 MG CAPSULE PO SCH (08:18)
[2020-06-28] MEDS: AZITHROMYCIN 250 MG TAB PO SCH (08:19)
--- NOTE | 2020-06-28 08:48 | XRay Report ---
XR chest 1V portable HISTORY: 44 years-old Female f/u acute respiratory failure COMPARISON: Chest radiograph 06/27/2020 TECHNIQUE: Portable AP view of the chest FINDINGS: Cardiac silhouette is enlarged. Small pleural effusions with unchanged linear bibasilar densities. No pneumothorax or overt pulmonary edema. Mild hypoinflation. No acute fracture. IMPRESSION: Hypoinflation with unchanged small pleural effusions and linear left greater than right b ibasilar opacities suggestive of atelectasis. Pneumonia would be difficult to exclude. ACT 112: Negative or not required by law. The above report was generated using voice recognition software. It may contain grammatical, syntax o r spelling errors. Electronically signed by: Justin Mclean M.D. 06/28/2020 8:47 AM
--- NOTE | 2020-06-28 09:10 | Pulmonology Progress Note ---
Date of Service June 28, 2020 Assessment & Plan (1) Community acquired pneumonia: CT chest 06/19/2020 personally reviewed: Dense consolidative process of the left lower lobe, atelectasis of the right lower lobe, minimal groundglass the patient initiated in the inferior segment of the lingula No mediastinal adenopathy. --Acute hypoxic respiratory failure Multifactorial Component of PE as well as left lower lobe consolidative process Pulmonary infarct might also be playing a role COVID-19 PCR as well as bio fire 06/24/2020:- negative Procalcitonin 0.05 Patient last CD4 count was 325 around February 2020 Given the dense consolidative process I would continue with antibiotics for total of 5 days Patient is a lifetime non-smoker. The last time she had pneumonia was more than 10 years ago for which she was admitted to the hospital. --Hemoptysis Resolved Likely secondary to underlying pneumonia with PE Monitor H&H Antitussive medication --Morbid obesity Outpatient polysomnography --History of HIV CD4 count greater than 200 Plan: Chest x-ray from today again shows poor inspiratory effort, aeration has improved compared to before. Patient was saturating 94% on room air at the time of examination. Continue with aggressive incentive spirometry and physical therapy Antitussive medications as needed Given the dense consolidative process and CD4 count greater than 200, the likelihood of any opportunistic infection is very low. No plans for bronchoscopy Patient will need repeat CT chest in 6-8 weeks after discharge. Please note the above document was generated using voice recognition software. It may contain grammatical, syntax or spelling errors.Any formal questions or concerns about the content, text or information contained within the body of this dictation should be directly addressed to the provider for clarification. (2) Pulmonary embolism: Pulmonary embolism type: single subsegmental (without acute cor pulmonale) Qualified Code(s): I26.93 - Single subsegmental pulmonary embolism without acute cor pulmonale (3) HIV (human immunodeficiency virus infection): HIV symptom status: unspecified Qualified Code(s): B20 - Human immunodeficiency virus [HIV] disease (4) Hemoptysis: Admission and Anticipated Discharge Date Admission Date: June 19, 2020 Subjective Patient seen and examined at bedside. No acute distress, no adverse events overnight. Shortness of breath is improved. Chest pain is also decreasing amount and severity. She is able to take deep breaths. She is getting approximately 1500 ml on the spirometry. Occasional cough. No more hemoptysis. Denies any abdominal pain. Has been walking around in the corridor. At the time of examination patient was saturating 94% on room air. Review of Systems Review of Systems: All systems reviewed & are unremarkable except as noted in Subjective Physical Exam Physical Exam: Constitutional: No acute distress HEENT: EOMI, PERRLA Respiratory system: Decreased air entry bilaterally, no wheeze, no rhonchi, positive crackles bilateral lower lobes CVS: S1-S2 positive, no murmurs or gallops Abdomen: Soft, nontender, nondistended, positive bowel sounds x4 Extremities: +2 pulses bilaterally radialis/ dorsalis pedis, no cyanosis, no edema Neuro: Awake alert oriented x3 Psych: Normal mood and affect G/U: No Solorio Skin: no rashes, warm and dry Lymphatic: no cervical or axillary lymphadenopathy Results & Data Results & Data ([facility]) Vital Signs (Past 12 Hours) Vital Signs Temp Pulse Pulse Resp BP BP Pulse Ox 06/28/20 07:26 36.7 C 75 16 116/77 89 L 06/28/20 02:56 77 06/28/20 00:57 87 06/27/20 23:12 37 C 92 H 20 100/64 94 06/27/20 21:30 84 Pulse Ox 06/28/20 07:26 06/28/20 02:56 92 06/28/20 00:57 90 06/27/20 23:12 06/27/20 21:30 92 06/26/20 06:57 06/26/20 06:57 PG Care Time/CCT Total # of Minutes Spent Total Time Spent with Patient: Total time spent is greater than 50% in coordination of care (as documented) at patient's floor/unit and/or counseling patient: Coding Level of Care Code 13530 Subseq Hosp Care Lvl 3 Diagnoses Community acquired pneumonia J18.9 Pulmonary embolism I26.93 Pulmonary embolism type: single subsegmental (without acute cor pulmonale) HIV (human immunodeficiency virus infection) B20 HIV symptom status: unspecified Hemoptysis R04.2
--- NOTE | 2020-06-28 09:39 | Communication Note ---
Date of Service: June 28, 2020 discussed with Pulm today pt is stable to be discharged home with 2 more days of PO Zithromax repeat CT chest in 6-8 weeks 2 step exercise ordered to assess home 02 needs plan to discharge pt home today afternoon Emma Benitez MD
[2020-06-28 10:01] LABS: Hematocrit (blood only) 38.1 % (37-47); Hemoglobin 12.9 g/dL (12.0-16.0)
[2020-06-28] MEDS ORDERED: guaiFENesin/DEXTROM SYRUP 200MG/20MG 10ML UDC PO PRN (10:29)
[2020-06-28] MEDS: BENZONATATE 100 MG CAPSULE PO SCH ×2 (11:13→13:54)
[2020-06-28] MEDS: cefTRIAXone SODIUM 2,000 MG in DEXTROSE 5% 50 ML IV SCH ×2 (12:36→13:54)
--- NOTE | 2020-06-28 12:46 | Discharge Summary ---
Date of Service June 28, 2020 Admission HPI Per Admitting Provider DICTATED BY: Dylon Pina MD DATE OF ADMISSION: 06/19/2020 CHIEF COMPLAINT: Left shoulder pain and found to have acute pulmonary embolism. HISTORY OF PRESENT ILLNESS: This 44-year-old female with past medical history significant for HIV, currently seems to be undetectable viral load, history of asthma, obesity, history of uterine fibroid, history of anxiety, who presents with left shoulder pain. The patient says she is also having venous insufficiency and is following in the vascular clinic where they injected foam into the legs recently. Couple of weeks Doppler showed possible dvt , but they were not sure if that is a clot or foam. Today, she came with left shoulder pain and a CTA of the chest showing acute PE in the lingula and also venous Doppler shows nonocclusive DVT in the right popliteal vein. The patient says the pain is now moving to left chest and pain is more on taking deep breath and subjective feeling of shortness of breath. She had some leg cramps, but that is improved now. The patient is anxious, she asked for some anxiety medication. Says she does not like narcotic pain medications, but okay with Tylenol. Denies any nausea, vomiting. No headache, no blurred vision, no earache, no runny nose, no sore throat, no cough, no loss of sense of smell or taste. No exposure to any COVID patients. No fevers. No dysphagia, no abdominal pain. Normal bowel and bladder movements. Denies any blood in the stools or black stools. No hematuria. Hemodynamics are stable. Principal Diagnosis Pulmonary Embolism Pneumonia Acute hypoxemic respiratory failure Discharge Exam Constitutional WD/WN, vitals as above Eyes PERRL, conjunctivae normal, anicteric sclerae ENMT external ear and nose normal, oropharynx normal Neck trachea midline, no thyromegaly Respiratory normal respiratory effort; no respiratory distress and no cough Cardiovascular RRR, no murmur, no edema Gastrointestinal (Abdomen) normal bowel sounds, soft, nontender, no hepatosplenomegaly Musculoskeletal no cyanosis or clubbing, extremities motor strength 5/5 Skin no rashes, warm and dry Neurologic PERRL, EOMI, accommodation nl, no face palsy, no dysarthria Psychiatric A+Ox3, euthymic affect Discharge Data Allergies Allergy/AdvReac Type Severity Reaction Status Date / Time terconazole Allergy Intermediate Hives Verified 06/18/20 22:34 IMIDAZOLE Allergy Unknown . Uncoded 06/18/20 22:34 Consultations 06/18/20 22:50 ED Decision to Admit Stat 06/19/20 01:49 Consult Case Management - Discharge Planning Routine 06/23/20 16:09 Consult Pulmonology Routine 06/25/20 10:47 Consult Infectious Diseases Routine Ordered Studies 06/18/20 21:12 CT angio chest PE protocol Urgent US venous doppler LE BI Urgent 06/19/20 18:23 CT chest diagnostic wo con Routine Hospital Course (1) Pulmonary embolism: 44 yo F admitted with left sided pleuritic chest pain CTA of chest positive for pulmonary embolism and nonocclusive DVT in the right popliteal vein. started on anticoagulation with Eliquis completed 7 days of loading dose 10 mg BID will be discharged home today with 5 mg PO BID pleuritic chest pain has resolved hx of mother having DVT /PE ( possibly provoked ) -after sustaining a fall and immobolity pt will need hypercoagulable work up done as out patient ECHO shows no evidence of rt heart strain (2) HIV (human immunodeficiency virus infection): Acute pulmonary embolism/pulm infarction Nonocclusive DVT in the right popliteal vein Possible community-acquired pneumonia. COVID 19 test negative was treated with ceftriaxone and azithromycin appreciate input from ID plan of care discussed with Pulmonology pt will be discharged home with 3 more days of PO Zithromax continue PO Eliquis for PE/DVT repeat CT chest with contrast in 6-8 weeks Possible CHF with diastolic heart failure : ECHO shows normal EF pt developed acute hypoxemic respiratory failure -due to acute PE/pneumonia /Cxray shows pulm congestion symptoms improved with IV Lasix , later transitioned to Lasix 20 mg PO BID volume status improved to euvolemic , no orthopnea , no lower ext edema Lasix discontinued Acute hypoxic respiratory failure in the setting of PE/pneumonia and possibly diastolic heart failure at present remains in room air , complains of SOB with activity 2 step exercise shows -pt requires 02 2L with activity only script given to case management to arrange home 02 nocturnal pulse oximetry shows no significant desaturation event over night History of HIV: Continue her antiretroviral home medications recent CD4 count > 200 , less risk for opportunistic infection pt will continue to follow with [facility] in clinic anxiety disorder ; mood stable FULL CODE Disposition stable to be discharge to home today Total Time Total Time Spent Total Time Spent (In Minutes): approx 35 mins Total Time Includes: Examination of the Patient, Discharge Planning, Medication Reconciliation and Communication With Other Providers Discharge Plan Discharge Items Patient Disposition: Home - Self-Care Reason For Visit: SHOULDER PAIN Discharge Diagnosis: Pulmonary Embolism Pneumonia Activity: Resume your previous activity Non-emergency contact: Primary Care Provider Call non-emergency contact if: you have any medication questions Follow-up/Referrals: Dontae Boyd MD [Primary Care Provider] - 07/03/20 11:00 am ( Date & Time 07/03/2020 11:00 AM Provider Dontae Boyd MD [facility] ) Diet: Regular Addtl Attending Provider Instructions: repeat CT chest in 6-8 weeks Hospital follow up with Dr Boyd as scheduled You are discharged with blood thinner Eliquis take 5 mg 1 tablet twice daily it increases your risk for bleeding take caution while handling sharp objects , with any cut /or injury it will take longer than normal to stop the bleeding You will need further Lab work to asses your future risk for blood clot Dr Licona office will order the labs and update you the result Pending Studies at Discharge: No Stand-Alone Forms: My [facility], Work/School Release (Inpt), Smoking Cessation Medications and DC Order Prescriptions: New azithromycin 250 mg Tablet 500 mg PO QAM 3 Days Qty: 6 RF: 0 Eliquis 5 mg Tablet 5 mg PO BID 30 Days Qty: 60 RF: 2 benzonatate [Tessalon Perles] 100 mg Capsule 100 mg PO TID PRN (Reason: cough) 30 Days Qty: 90 RF: 0 Continued Odefsey 200-25-25 mg tablet 1 tab PO DAILY RF: 0 Discharge Orders: Discharge Order (Routine); Ordered 06/28/20 Ordered By: Emma Fitzgerald/Other Patient Handouts: Apixaban oral tablets Admission Data Admit Date/Time: 06/19/20 00:25 Attending Provider: Emma Benitez Admit Provider: Dylon Pina Primary Care Provider: Dontae Boyd Other Providers: Lester Ordoñez ; Dylon Pina ; Shola Perla ; Jb Beasley ; Josh Valdivia ; Zach Lopez I. ; Arash Fam II ; Nelida Mckeon ; Sky Bennett Other Interventions: Discharge Summary Assessment (RN) Last Done: 06/28/20 15:42
[2020-06-30 13:47] LABS: LSP % Cells Analyzed CD4 35 % (30-61); LSP Absolute Ct CD4 271 cells/uL (490-1740); LSP Lymphocytes Absolute 771 cells/uL (850-3900)
== END 2020-06-28 17:00 | disposition home or self-care (01) | DRG 175 ==
LOC: ED 20:54 → SUATTDRO 06-19 00:25 → 2N 06-19 00:25

== ENCOUNTER 2020-10-14 17:51 | Inpatient (IN) ==
[~2020-10-14 17:51] MED LIST: IBUPROFEN 600 MG TAB PO SCH
[2020-10-14] MEDS ORDERED: KETOROLAC TROMETHAMINE 15 MG/ML VIAL IV ONE (18:12)
[2020-10-14] MEDS ORDERED: SODIUM CHLORIDE 0.9% 1000ML 2,000 ML IV ONE (18:12)
--- NOTE | 2020-10-14 18:17 | Emergency Department Note ---
Impression & Plan Left tubo-ovarian abscess, HIV (human immunodeficiency virus infection) ED Provider Note NAME: NGA AVILES AGE: 45 SEX: F : 1975 ARRIVES VIA: Walk-In INFORMANT: Patient ED PROVIDER(S): Robles Carvajal DO CHIEF COMPLAINT: Abdominal pain, myalgias and fever HPI: Patient is a 45-year-old female with past medical history of PE, HIV with an undetectable viral load and a chronically low CD4 count who presents the ER for abdominal pain. Everything started within the past 24 hours. She has joint pain as well. Abdominal pain started epigastric and now is located periumbilically. She admits to nausea but no vomiting. No dysuria, urgency, or frequency. No previous belly surgeries with exception of a . She notes that she does not feel like she wants to eat at this time. Her temperature at home was 101 just following taking an NSAID. No other exacerbating or remitting factors. ROS: See above HPI for pertinent positives & negatives. A total of 10 systems reviewed and were otherwise negative. PAST MEDICAL HISTORY:See Below PAST SURGICAL HISTORY:See Below FAMILY HISTORY:See Below SOCIAL HISTORY:See Below HOME MEDICATIONS:See Below ALLERGIES:See Below VITALS:See Below PHYSICAL EXAMINATION: GENERAL: Sitting up in bed, alert, well appearing, well nourished, no distress, non-toxic EYE EXAM: normal conjunctiva. OROPHARYNX: no exudate, no erythema, lips, buccal mucosa, and tongue normal and mucous membranes are moist NECK: supple, no nuchal rigidity, no adenopathy, non-tender LUNGS: Clear to auscultation. Normal chest wall mechanics HEART: no murmurs, S1 normal and S2 normal ABDOMEN: abdomen soft, mild tenderness periumbilically, normo-active bowel sounds, no masses, no rebound or guarding. BACK: Back is symmetrical on inspection and there is no deformity, no midline tenderness, no CVA tenderness. SKIN: no rashes and no bruising UPPER EXTREMITIES: upper extremities are grossly normal. LOWER EXTREMITIES: No pitting edema. NEURO EXAM: Normal sensorium, cranial nerves II-XII grossly intact, normal speech, no gross weakness of arms, no gross weakness of legs. MEDICAL DECISION MAKING: Patient is a 45-year-old female that presents the ER for epigastric and lower abdominal pain. IV was established blood work was obtained. Labs show leukocytosis of 12.2 thousand. No significant anemia. Having fevers at home. High as of 10 1-1 02. BMP was fairly unremarkable with a normal creatinine. Bilirubin unremarkable as well as LFTs. Lipase was normal. UA was contaminated although does suggest an infection which I favor is likely secondary to the tubo-ovarian abscess around the left ovary. Patient was given IV fluids, IV antibiotics. Patient was updated bedside. Discussed with [employer] who evaluate the patient at bedside admitted her with her history of HIV and immunocompromise. Triage Nursing notes reviewed. Limited review of prior medical records performed Vital Signs: reviewed and remarkable for no significant abnormalities Differential diagnosis: Differential diagnoses includes but is not limited to gastritis, peptic ulcer disease, GERD, gallbladder disease, pancreatitis, small bowel obstruction, acute coronary syndrome, pericarditis, ischemic bowel, irritable bowel disease, irritable bowel syndrome, appendicitis, diverticulitis, malignancy, hernia, urinary tract infection, torsion, /ectopic (if female), perforation, trauma, infectious. ER treatment provided: See below Diagnostics interpreted by me: ECG: none Cardiac Monitoring: An order was placed for continuous cardiac monitoring. The monitor shows a rate of 95 with sinus rhythm. Laboratory studies: As stated above and show below. Imaging studies: CT abdomen pelvis shows left tubo-ovarian abscess Consultation(s): Patient was evaluated by Dr. Morillo and admitted for further work-up Procedures: none Critical Care: None Past Med/Surg History Medical History (Updated 10/15/20 @ 00:08 by Robles Carvajal DO) Community acquired pneumonia DVT (deep vein thrombosis) in Hemoptysis HIV (human immunodeficiency virus infection) Morbid obesity due to excess calories No pertinent family history Pleurisy Pulmonary infarct Surgical History (Updated 10/14/20 @ 21:25 by Kuldeep Whittington MD) No pertinent past surgical history Section Social History Smoking Status: Never smoker Second Hand Exposure: No ( smokes on porch); Do You Dip or Chew Tobacco: No; Hx Alcohol Use: Yes Alcohol type: beer, wine and hard liquor Hx Substance Use: No Preferred Language: Syrian Communication Ability: Effective Vibrator Equipment Tester Required: No Beliefs That Will Affect Care: None Current Living Situation: Spouse Other Information That Helps Us Care for You: No Feels Safe at Home: Yes Safety Concerns: Feels Safe At This Time Assistive Devices: None Allergies Allergies Allergy/AdvReac Type Severity Reaction Status Date / Time terconazole Allergy Intermediate Hives Verified 10/14/20 18:57 IMIDAZOLE Allergy Intermediate Hives Uncoded 10/14/20 18:57 Home Meds Home Medications Medication Instructions Recorded Confirmed Odefsey 1 tab PO DAILY 06/18/20 10/14/20 Lactobacillus acidophilus 10,000 mmu cells PO DAILY 10/14/20 10/14/20 [Probiotic] cholecalciferol (vitamin D3) 10 mcg PO DAILY 10/14/20 10/14/20 [Vitamin D3] iodine (kelp) [Sea Kelp] 1 tab PO DAILY 10/14/20 10/14/20 zinc 50 mg PO DAILY 10/14/20 10/14/20 Previous Rx's Medication Instructions Recorded apixaban [Eliquis] 5 mg PO BID 30 Days #60 tab 06/28/20 Results & Data (ED) Vital Signs Vital Signs - 24 hr 10/14/20 18:04 10/14/20 19:46 Temperature 36.2 C L Temperature Source Skin Pulse Rate 98 H 75 Pulse Rate [Finger] 74 Respiratory Rate 20 20 Respiratory Effort / Characteristics Non-Labored Spontaneous Non-Labored Spontaneous Respiratory Depth Normal Normal Blood Pressure 119/89 Blood Pressure [Right Arm] 109/77 Blood Pressure Mean 99 Blood Pressure Mean [Right Arm] 87 Blood Pressure Position Sitting Pulse Oximetry 95 98 Oxygen Delivery Method Room Air Room Air Sepsis Recent Fever Within 48 Hours No Sepsis New/Unexplained Change in Mental Status N/A Sepsis Action Taken by Nursing No Action Required Laboratory Data Result diagrams: 10/14/20 18:25 10/14/20 18:25 Lab Results 10/14/20 10/14/20 10/14/20 Range/Units 18:25 18:25 18:25 WBC 12.28 H (4.8-10.8) K/uL RBC 4.71 (4.2-5.4) M/uL Hgb 14.3 (12.0-16.0) g/dL Hct 42.2 (37-47) % MCV 89.6 (80-100) fL MCH 30.4 (25-34) pg MCHC 33.9 (32-36) g/dL RDW Std Deviation 43.4 (36.4-46.3) fL RDW Coeff of Trung 13.2 (11.5-14.5) % Plt Count 252 (130-400) K/uL MPV 9.6 (7.4-10.4) fL Immature Gran % (Auto) 0.3 % Neut % (Auto) 79.7 % Lymph % (Auto) 12.1 % Merrick % (Auto) 7.1 % Eos % (Auto) 0.6 % Baso % (Auto) 0.2 % Neut # (Auto) 9.79 H (1.4-6.5) K/uL Lymph # (Auto) 1.48 (1.2-3.4) K/uL Merrick # (Auto) 0.87 H (0.11-0.59) K/uL Eos # (Auto) 0.07 (0-0.5) K/uL Baso # (Auto) 0.03 (0-0.2) K/uL Immature Gran # (Auto) 0.04 H (0.00-0.02) K/uL Sodium 138 (136-145) mmol/L Potassium 3.5 (3.5-5.1) mmol/L Chloride 106 (98-107) mmol/L Carbon Dioxide 24 (21-32) mmol/L Anion Gap 8.0 (3-11) BUN 10 (7-18) mg/dl Creatinine 0.83 (0.6-1.2) mg/dl Est Cr Clr Drug Dosing 97.5 ml/min Est GFR ( Amer) 97.3 ml/min Est GFR (Non-Af Amer) 84.0 ml/min BUN/Creatinine Ratio 12.3 (10-20) Glucose 89 (70-99) mg/dl Calcium 8.7 (8.5-10.1) mg/dl Total Bilirubin 0.9 (0.2-1) mg/dl AST 12 L (15-37) U/L ALT 23 (12-78) U/L Alkaline Phosphatase 68 (45-117) U/L Total Protein 7.9 (6.4-8.2) gm/dl Albumin 3.8 (3.4-5.0) gm/dl Globulin 4.1 H (2.5-4.0) gm/dl Albumin/Globulin Ratio 0.9 (0.9-2) Lipase 69 L (73-393) U/L Urine Color Urine Appearance (Clear) Urine pH (4.5-7.5) Ur Specific [place] (1.000-1.030) Urine Protein (Negative) Urine Glucose (UA) (Negative) Urine Ketones (Negative) Urine Blood (Negative) Urine Nitrite (Negative) Urine Bilirubin (Negative) Urine Urobilinogen (Negative) Ur Leukocyte Esterase (Negative) Urine WBC (Auto) (0-5) /hpf Urine RBC (Auto) (0-4) /hpf U Hyaline Cast (Auto) (0-5) /lpf U Epithel Cells (Auto) (0-5) /lpf Urine Bacteria (Auto) (Negative) Urine Test (Negative) Lyme Disease IgG Ab Negative (Negative) Lyme Disease IgM Ab Negative (Negative) COVID-19 Eval Order SARS-CoV-2 (PCR) (Negative) 10/14/20 10/14/20 10/14/20 Range/Units 18:25 18:25 20:53 WBC (4.8-10.8) K/uL RBC (4.2-5.4) M/uL Hgb (12.0-16.0) g/dL Hct (37-47) % MCV (80-100) fL MCH (25-34) pg MCHC (32-36) g/dL RDW Std Deviation (36.4-46.3) fL RDW Coeff of Trung (11.5-14.5) % Plt Count (130-400) K/uL MPV (7.4-10.4) fL Immature Gran % (Auto) % Neut % (Auto) % Lymph % (Auto) % Merrick % (Auto) % Eos % (Auto) % Baso % (Auto) % Neut # (Auto) (1.4-6.5) K/uL Lymph # (Auto) (1.2-3.4) K/uL Merrick # (Auto) (0.11-0.59) K/uL Eos # (Auto) (0-0.5) K/uL Baso # (Auto) (0-0.2) K/uL Immature Gran # (Auto) (0.00-0.02) K/uL Sodium (136-145) mmol/L Potassium (3.5-5.1) mmol/L Chloride (98-107) mmol/L Carbon Dioxide (21-32) mmol/L Anion Gap (3-11) BUN (7-18) mg/dl Creatinine (0.6-1.2) mg/dl Est Cr Clr Drug Dosing ml/min Est GFR ( Amer) ml/min Est GFR (Non-Af Amer) ml/min BUN/Creatinine Ratio (10-20) Glucose (70-99) mg/dl Calcium (8.5-10.1) mg/dl Total Bilirubin (0.2-1) mg/dl AST (15-37) U/L ALT (12-78) U/L Alkaline Phosphatase (45-117) U/L Total Protein (6.4-8.2) gm/dl Albumin (3.4-5.0) gm/dl Globulin (2.5-4.0) gm/dl Albumin/Globulin Ratio (0.9-2) Lipase (73-393) U/L Urine Color Dark Yellow Urine Appearance Cloudy A (Clear) Urine pH 5.5 (4.5-7.5) Ur Specific [place] 1.037 H (1.000-1.030) Urine Protein 2+ H (Negative) Urine Glucose (UA) Negative (Negative) Urine Ketones 4+ H (Negative) Urine Blood Negative (Negative) Urine Nitrite Positive A (Negative) Urine Bilirubin 1+ H (Negative) Urine Urobilinogen Negative (Negative) Ur Leukocyte Esterase 2+ H (Negative) Urine WBC (Auto) >30 H (0-5) /hpf Urine RBC (Auto) 0-4 (0-4) /hpf U Hyaline Cast (Auto) 1-5 (0-5) /lpf U Epithel Cells (Auto) >30 H (0-5) /lpf Urine Bacteria (Auto) 1+ H (Negative) Urine Test Negative (Negative) Lyme Disease IgG Ab (Negative) Lyme Disease IgM Ab (Negative) COVID-19 Eval Order Covid19 at [facility] SARS-CoV-2 (PCR) (Negative) 10/14/20 Range/Units 20:53 WBC (4.8-10.8) K/uL RBC (4.2-5.4) M/uL Hgb (12.0-16.0) g/dL Hct (37-47) % MCV (80-100) fL MCH (25-34) pg MCHC (32-36) g/dL RDW Std Deviation (36.4-46.3) fL RDW Coeff of Trung (11.5-14.5) % Plt Count (130-400) K/uL MPV (7.4-10.4) fL Immature Gran % (Auto) % Neut % (Auto) % Lymph % (Auto) % Merrick % (Auto) % Eos % (Auto) % Baso % (Auto) % Neut # (Auto) (1.4-6.5) K/uL Lymph # (Auto) (1.2-3.4) K/uL Merrick # (Auto) (0.11-0.59) K/uL Eos # (Auto) (0-0.5) K/uL Baso # (Auto) (0-0.2) K/uL Immature Gran # (Auto) (0.00-0.02) K/uL Sodium (136-145) mmol/L Potassium (3.5-5.1) mmol/L Chloride (98-107) mmol/L Carbon Dioxide (21-32) mmol/L Anion Gap (3-11) BUN (7-18) mg/dl Creatinine (0.6-1.2) mg/dl Est Cr Clr Drug Dosing ml/min Est GFR ( Amer) ml/min Est GFR (Non-Af Amer) ml/min BUN/Creatinine Ratio (10-20) Glucose (70-99) mg/dl Calcium (8.5-10.1) mg/dl Total Bilirubin (0.2-1) mg/dl AST (15-37) U/L ALT (12-78) U/L Alkaline Phosphatase (45-117) U/L Total Protein (6.4-8.2) gm/dl Albumin (3.4-5.0) gm/dl Globulin (2.5-4.0) gm/dl Albumin/Globulin Ratio (0.9-2) Lipase (73-393) U/L Urine Color Urine Appearance (Clear) Urine pH (4.5-7.5) Ur Specific [place] (1.000-1.030) Urine Protein (Negative) Urine Glucose (UA) (Negative) Urine Ketones (Negative) Urine Blood (Negative) Urine Nitrite (Negative) Urine Bilirubin (Negative) Urine Urobilinogen (Negative) Ur Leukocyte Esterase (Negative) Urine WBC (Auto) (0-5) /hpf Urine RBC (Auto) (0-4) /hpf U Hyaline Cast (Auto) (0-5) /lpf U Epithel Cells (Auto) (0-5) /lpf Urine Bacteria (Auto) (Negative) Urine Test (Negative) Lyme Disease IgG Ab (Negative) Lyme Disease IgM Ab (Negative) COVID-19 Eval Order SARS-CoV-2 (PCR) NEGATIVE (Negative) Administered Medications Enoxaparin Sodium (Enoxaparin Inj 40 Mg/0.4 Ml Syr) 40 mg SQ Q12H CHARO Stop: 11/13/20 22:59 Last Admin: 10/14/20 23:38 Dose: 40 mg Documented by: [id number] Discontinued Medications Sodium Chloride (Nss 1000ml) 2,000 mls @ 999 mls/hr IV .Q2H1M ONE Stop: 10/14/20 20:12 Last Infusion: 10/14/20 20:36 Dose: 0 mls/hr Documented by: [id number] Admin: 10/14/20 18:29 Dose: 999 mls/hr Documented by: [id number] Ceftriaxone Sodium (Rocephin) 1,000 mg in 50 mls @ 100 mls/hr IV NOW STA Stop: 10/14/20 19:15 Last Infusion: 10/14/20 20:09 Dose: 0 mls/hr Documented by: [id number] Admin: 10/14/20 19:42 Dose: 100 mls/hr Documented by: [id number] Piperacillin Sod/Tazobactam Sod (Zosyn) 4.5 gm in 120 mls @ 240 mls/hr IV NOW ONE Stop: 10/14/20 20:30 Last Admin: 10/14/20 20:43 Dose: Not Given Documented by: [id number] Doxycycline Hyclate 100 mg/ (Dextrose) 110 mls @ 50 mls/hr IV NOW STA Stop: 10/14/20 22:20 Last Admin: 10/14/20 22:00 Dose: 50 mls/hr Documented by: [id number] Cefoxitin Sodium (Mefoxin) 2,000 mg in 60 mls @ 100 mls/hr IV Q6 STA Stop: 10/14/20 21:49 Last Infusion: 10/14/20 22:03 Dose: 0 mls/hr Documented by: [id number] Admin: 10/14/20 21:30 Dose: 100 mls/hr Documented by: [id number] Ibuprofen (Ibuprofen 600 Mg Tab) 600 mg PO ONE STA Stop: 10/14/20 21:21 Last Admin: 10/14/20 21:30 Dose: 600 mg Documented by: [id number] Ioversol (Optiray 320 100ml) 88 ml IV ONCE ONE Stop: 10/14/20 19:12 Last Admin: 10/14/20 19:12 Dose: 88 ml Documented by: [id number] Ketorolac Tromethamine (Ketorolac Tromethamine 15 Mg/Ml Vial) 10 mg IV NOW ONE Stop: 10/14/20 18:13 Last Admin: 10/14/20 18:30 Dose: 10 mg Documented by: [id number] Imaging Data Radiologist's Impression: Abdomen/Pelvis CT 10/14/20 18:[address] WITH IV CONTRAST CT DOSE: 965.91 mGycm HISTORY: abd pain periumbilical +fever TECHNIQUE: Multiaxial CT images of the abdomen and pelvis were performed following the use of intravenous contrast. A dose lowering technique was utilized adhering to the principles of ALARA. COMPARISON STUDY: None. FINDINGS: The lung bases are clear. No pneumoperitoneum. No pneumatosis. Mild hepatic steatosis. No hepatic or splenic masses. The adrenal glands, pancreas, gallbladder are within normal limits. The kidneys enhance normally. No hydronephrosis. No retroperitoneal lymphadenopathy. Normal caliber abdominal aorta. The main portal vein is patent. The bladder is decompressed but appears u nremarkable. The uterus and right adnexa are within normal limits. No bowel wall thickening or obstruction. Normal appendix. Within the left adnexa/ovary there is a multiloculated peripheral enhancing cystic lesion with mild adjacent fat stranding. This likely represents a tubo-ovarian abscess. A cystic mass could also have a similar appearance but is considered less likely. This measures approximately 4.3 x 3.5 cm. IMPRESSION: Within the left adnexa/ovary there is a multiloculated peripheral enhancing cystic lesion with mild adjacent fat stranding. This likely represents a tubo- ovarian abscess. A cystic mass could also have a similar appearance but is considered less likely. This measures approximately 4.3 x 3.5 cm. Gynecologic consultation recommended. In addition, 3 month abdomen and pelvis CT follow-up is recommended to ensure resolution. ACT 112: Negative or not required by law. Electronically signed by: Bert Calhoun M.D. 10/14/2020 7:37 PM Discharge Plan Visit Data Chief Complaint: Abdominal Pain Stated Complaint: STOMACH ACHE - FEVER ED Provider: Robles Carvajal Discharge Problem: Left tubo-ovarian abscess, HIV (human immunodeficiency virus infection) Patient Disposition: Admitted As Inpatient Discharge Instructions Interventions: ED Discharge Assessment Last Done: 10/14/20 22:17 Discharge Problem: HIV (human immunodeficiency virus infection) Qualifiers: HIV symptom status: unspecified Qualified Code(s): B20 - Human immunodeficiency virus [HIV] disease
[2020-10-14 18:35] LABS: Basophils # (auto) 0.03 K/uL (0-0.2); Basophils % (auto) 0.2 %; Eosinophils # (auto) 0.07 K/uL (0-0.5); Eosinophils % (auto) 0.6 %; Hematocrit (blood only) 42.2 % (37-47); Hemoglobin 14.3 g/dL (12.0-16.0); Immature Granulocytes # (auto) 0.04 K/uL (0.00-0.02); Immature Granulocytes % (auto) 0.3 %; Lymphocytes # (auto) 1.48 K/uL (1.2-3.4); Lymphocytes % (auto) 12.1 %; Mean Corpuscular Hemoglobin 30.4 pg (25-34); Mean Corpuscular Hgb Conc 33.9 g/dL (32-36); Mean Corpuscular Volume 89.6 fL (80-100); Mean Platelet Volume 9.6 fL (7.4-10.4); Monocytes # (auto) 0.87 K/uL (0.11-0.59); Monocytes % (auto) 7.1 %; Neutrophils # (auto) 9.79 K/uL (1.4-6.5); Neutrophils % (auto) 79.7 %; Platelet Count 252 K/uL (130-400); RDW Coefficient of Variation 13.2 % (11.5-14.5); RDW Standard Deviation 43.4 fL (36.4-46.3); Red Blood Count 4.71 M/uL (4.2-5.4); White Blood Count 12.28 K/uL (4.8-10.8)
[2020-10-14 18:44] LABS: Appearance Urine Cloudy (Clear); Blood Urine Negative (Negative); Color Urine Dark Yellow; Epithelial Cell Urine Auto >30 /lpf (0-5); Glucose Urine UA Negative (Negative); Ketones Urine 4+ (Negative); Leukocyte Esterase Urine 2+ (Negative); Nitrite Urine Positive (Negative); Protein Urine 2+ (Negative); RBC Urine Automated 0-4 /hpf (0-4); Specific Gravity Urine 1.037 (1.000-1.030); Urobilinogen Urine Negative (Negative); WBC Urine Automated >30 /hpf (0-5); pH Urine 5.5 (4.5-7.5)
[2020-10-14 18:45] LABS: Bilirubin Urine 1+ (Negative)
[2020-10-14] MEDS ORDERED: cefTRIAXone SODIUM 1,000 MG/50 ML BAG IV STA (18:46)
[2020-10-14 18:48] LABS: Pregnancy Test, Urine Negative (Negative)
[2020-10-14 18:52] LABS: Bacteria Urine Automated 1+ (Negative)
[2020-10-14 19:01] LABS: Albumin Level 3.8 gm/dl (3.4-5.0); BUN Creatinine Ratio 12.3 (10-20); Calcium 8.7 mg/dl (8.5-10.1); Creatinine Clr Calc Pharmacy 97.5 ml/min; Est GFR (African American) 97.3 ml/min; Potassium 3.5 mmol/L (3.5-5.1)
[2020-10-14 19:04] LABS: Albumin Globulin Ratio 0.9 (0.9-2); Bilirubin,Total 0.9 mg/dl (0.2-1); Globulin 4.1 gm/dl (2.5-4.0); Total Protein 7.9 gm/dl (6.4-8.2)
[2020-10-14] MEDS ORDERED: OPTIRAY 320 100ml IV ONE (19:11)
[2020-10-14 19:23] LABS: Lyme Ab IgG w/WB Rflx Negative (Negative); Lyme Ab IgM w/WB Rflx Negative (Negative)
--- NOTE | 2020-10-14 19:38 | CT Scan Report ---
ABDOMEN AND PELVIS CT WITH IV CONTRAST CT DOSE: 965.91 mGycm HISTORY: abd pain periumbilical +fever TECHNIQUE: Multiaxial CT images of the abdomen and pelvis were performed following the use of intrave nous contrast. A dose lowering technique was utilized adhering to the principles of ALARA. COMPARISON STUDY: None. FINDINGS: The lung bases are clear. No pneumoperitoneum. No pneumatosis. Mild hepatic steatosis. No h epatic or splenic masses. The adrenal glands, pancreas, gallbladder are within normal limits. The kid neys enhance normally. No hydronephrosis. No retroperitoneal lymphadenopathy. Normal caliber abdomina l aorta. The main portal vein is patent. The bladder is decompressed but appears unremarkable. The ut erus and right adnexa are within normal limits. No bowel wall thickening or obstruction. Normal appen mahad. Within the left adnexa/ovary there is a multiloculated peripheral enhancing cystic lesion with m ild adjacent fat stranding. This likely represents a tubo-ovarian abscess. A cystic mass could also h ave a similar appearance but is considered less likely. This measures approximately 4.3 x 3.5 cm. IMPRESSION: Within the left adnexa/ovary there is a multiloculated peripheral enhancing cystic lesion with mild a djacent fat stranding. This likely represents a tubo-ovarian abscess. A cystic mass could also have a similar appearance but is considered less likely. This measures approximately 4.3 x 3.5 cm. Gynecolo gic consultation recommended. In addition, 3 month abdomen and pelvis CT follow-up is recommended to ensure resolution. ACT 112: Negative or not required by law. Electronically signed by: Bert Calhoun M.D. 10/14/2020 7:37 PM
[2020-10-14] MEDS ORDERED: PIPERACILLIN/TAZOBACTAM 4.5 GM/120 ML BAG IV ONE (20:01)
[2020-10-14] MEDS ORDERED: PIPERACILL/TAZOBAC CONSULT ACTIVE PRN (20:01)
[2020-10-14] MEDS ORDERED: DOXYCYCLINE HYCLATE 100 MG in DEXTROSE 5% 100 ML IV STA (20:09)
[2020-10-14] MEDS ORDERED: cefOXitin 2,000 MG/60 ML BAG IV STA (21:14)
[2020-10-14] MEDS ORDERED: IBUPROFEN 600 MG TAB PO STA (21:20)
--- NOTE | 2020-10-14 21:23 | History & Physical Report ---
Date of Service October 14, 2020 Assessment & Plan (1) Left tubo-ovarian abscess: Admission and Anticipated Discharge Date Anticipated date of discharge: 10/15/20 History of Present Illness Chief Complaint: abdominal pain Primary Care Provider: Dontae Boyd MD 45 F [id number] who presents to ER with 2 day history of generalized epigastric abdominal pain non-radiating, dull with sudden onset yesterday. No nausea, vomiting, diarrhea or constipation. No urinary symptoms of frequency or pain. Some loss of appetite. Regular bowel movements. Has not had any change in activity. Patient comfortable at rest a nd is in no visible distress. Has not had this pain previously. Is currently HIV positive with low viral loads. Has had Covid vaccine and has not tested positive for Covid in the past. Allergies Allergy/AdvReac Type Severity Reaction Status Date / Time terconazole Allergy Intermediate Hives Verified 10/14/20 18:57 IMIDAZOLE Allergy Intermediate Hives Uncoded 10/14/20 18:57 Home Medications Medication Instructions Recorded Confirmed Type Odefsey 1 tab PO DAILY 06/18/20 10/14/20 History apixaban [Eliquis] 5 mg PO BID 30 Days #60 tab 06/28/20 10/14/20 Rx Lactobacillus acidophilus 10,000 mmu cells PO DAILY 10/14/20 10/14/20 History [Probiotic] cholecalciferol (vitamin D3) 10 mcg PO DAILY 10/14/20 10/14/20 History [Vitamin D3] iodine (kelp) [Sea Kelp] 1 tab PO DAILY 10/14/20 10/14/20 History zinc 50 mg PO DAILY 10/14/20 10/14/20 History Patient History Medical History (Updated 10/14/20 @ 21:31 by Kuldeep Whittington MD) Community acquired pneumonia DVT (deep vein thrombosis) in Hemoptysis HIV (human immunodeficiency virus infection) Morbid obesity due to excess calories No pertinent family history Pleurisy Pulmonary infarct Surgical History (Updated 10/14/20 @ 21:25 by Kuldeep Whittington MD) No pertinent past surgical history Section Social History Smoking Status: Never smoker Hx Alcohol Use: No Hx Substance Use: No Preferred Language: Danish Communication Ability: Effective Weigher Alloy Required: No Beliefs That Will Affect Care: None Current Living Situation: Spouse Feels Safe at Home: Yes Assistive Devices: None OB 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 no evidence of any peritoneal signs Musculoskeletal: no cyanosis or clubbing, extremities motor strength 5/5 Neurologic: patellar DTR's 2+ bilat, sensation intact Results & Data ([facility]) Vital Signs (Past 12 Hours) Vital Signs Temp Pulse Pulse Resp BP BP Pulse Ox 10/14/20 19:46 75 74 20 109/77 98 10/14/20 18:04 36.2 C L 98 H 20 119/89 95 Laboratory Results Laboratory Results - last 72 hr 10/14/20 10/14/20 10/14/20 18:25 18:25 18:25 WBC 12.28 H RBC 4.71 Hgb 14.3 Hct 42.2 MCV 89.6 MCH 30.4 MCHC 33.9 RDW Std Deviation 43.4 RDW Coeff of Trung 13.2 Plt Count 252 MPV 9.6 Immature Gran % (Auto) 0.3 Neut % (Auto) 79.7 Lymph % (Auto) 12.1 Miller % (Auto) 7.1 Eos % (Auto) 0.6 Baso % (Auto) 0.2 Neut # (Auto) 9.79 H Lymph # (Auto) 1.48 Miller # (Auto) 0.87 H Eos # (Auto) 0.07 Baso # (Auto) 0.03 Immature Gran # (Auto) 0.04 H Sodium 138 Potassium 3.5 Chloride 106 Carbon Dioxide 24 Anion Gap 8.0 BUN 10 Creatinine 0.83 Est Cr Clr Drug Dosing 97.5 Est GFR ( Amer) 97.3 Est GFR (Non-Af Amer) 84.0 BUN/Creatinine Ratio 12.3 Glucose 89 Calcium 8.7 Total Bilirubin 0.9 AST 12 L ALT 23 Alkaline Phosphatase 68 Total Protein 7.9 Albumin 3.8 Globulin 4.1 H Albumin/Globulin Ratio 0.9 Lipase 69 L Urine Color Urine Appearance Urine pH Ur Specific Pooler Urine Protein Urine Glucose (UA) Urine Ketones Urine Blood Urine Nitrite Urine Bilirubin Urine Urobilinogen Ur Leukocyte Esterase Urine WBC (Auto) Urine RBC (Auto) U Hyaline Cast (Auto) U Epithel Cells (Auto) Urine Bacteria (Auto) Urine Test Lyme Disease IgG Ab Negative Lyme Disease IgM Ab Negative COVID-19 Eval Order 10/14/20 10/14/20 10/14/20 18:25 18:25 20:53 WBC RBC Hgb Hct MCV MCH MCHC RDW Std Deviation RDW Coeff of Trung Plt Count MPV Immature Gran % (Auto) Neut % (Auto) Lymph % (Auto) Miller % (Auto) Eos % (Auto) Baso % (Auto) Neut # (Auto) Lymph # (Auto) Miller # (Auto) Eos # (Auto) Baso # (Auto) Immature Gran # (Auto) Sodium Potassium Chloride Carbon Dioxide Anion Gap BUN Creatinine Est Cr Clr Drug Dosing Est GFR ( Amer) Est GFR (Non-Af Amer) BUN/Creatinine Ratio Glucose Calcium Total Bilirubin AST ALT Alkaline Phosphatase Total Protein Albumin Globulin Albumin/Globulin Ratio Lipase Urine Color Dark Yellow Urine Appearance Cloudy A Urine pH 5.5 Ur Specific Pooler 1.037 H Urine Protein 2+ H Urine Glucose (UA) Negative Urine Ketones 4+ H Urine Blood Negative Urine Nitrite Positive A Urine Bilirubin 1+ H Urine Urobilinogen Negative Ur Leukocyte Esterase 2+ H Urine WBC (Auto) >30 H Urine RBC (Auto) 0-4 U Hyaline Cast (Auto) 1-5 U Epithel Cells (Auto) >30 H Urine Bacteria (Auto) 1+ H Urine Test Negative Lyme Disease IgG Ab Lyme Disease IgM Ab COVID-19 Eval Order Covid19 at [facility] Diagnostic Findings CT scan shows 4.3 x 3.5 cm tubo-ovarian mass on left Code Status & VTE Plan VTE Prophylaxis Plan VTE Prophylaxis will be ordered: Yes
[2020-10-14] MEDS ORDERED: ONDANSETRON INJ 2 MG/ML 2 ML VIAL IV PRN (22:47)
[2020-10-14] MEDS: ENOXAPARIN INJ 40 MG/0.4 ML SYR SQ SCH (23:38)
[2020-10-15] MEDS: LACTATED RINGER'S 1,000 ML IV SCH ×3 (00:30→17:05)
[2020-10-15 06:23] LABS: Basophils # (auto) 0.02 K/uL (0-0.2); Basophils % (auto) 0.3 %; Eosinophils # (auto) 0.12 K/uL (0-0.5); Eosinophils % (auto) 1.6 %; Immature Granulocytes # (auto) 0.03 K/uL (0.00-0.02); Immature Granulocytes % (auto) 0.4 %; Lymphocytes # (auto) 0.97 K/uL (1.2-3.4); Lymphocytes % (auto) 12.6 %; Mean Corpuscular Hemoglobin 29.6 pg (25-34); Mean Corpuscular Hgb Conc 33.3 g/dL (32-36); Mean Corpuscular Volume 88.9 fL (80-100); Mean Platelet Volume 9.5 fL (7.4-10.4); Monocytes % (auto) 9.1 %; Neutrophils # (auto) 5.88 K/uL (1.4-6.5); Platelet Count 170 K/uL (130-400); RDW Coefficient of Variation 13.3 % (11.5-14.5); RDW Standard Deviation 43.3 fL (36.4-46.3); Red Blood Count 4.05 M/uL (4.2-5.4); White Blood Count 7.72 K/uL (4.8-10.8)
[2020-10-15] MEDS: ZINC SULFATE 220 MG CAPSULE PO SCH (08:27)
[2020-10-15] MEDS: CHOLECALCIFEROL 400 UNITS 10 MCG TAB PO SCH (08:28)
[2020-10-15] MEDS: ADVANCED PROBIOTIC 1250 MG CAPSULE PO SCH (08:28)
[2020-10-15] MEDS: [UNRECOGNIZED DRUG - OTHER] PO SCH (08:29)
[2020-10-15] MEDS: EMTRICITABINE PO SCH (08:29)
[2020-10-15] MEDS: TENOFOVIR ALAFENAMIDE PO SCH (08:29)
[2020-10-15] MEDS: RILPIVIRINE PO SCH (08:29)
[2020-10-15] MEDS: DOXYCYCLINE HYCLATE 100 MG in DEXTROSE 5% 100 ML IV SCH ×2 (08:31→19:42)
[2020-10-15] MEDS ORDERED: IODINE PO SCH (09:00)
--- NOTE | 2020-10-15 09:37 | Obstetrical Progress Note ---
Date of Service October 15, 2020 Assessment & Plan Admission and Anticipated Discharge Date Admission Date: October 14, 2020 Subjective Patient is seen and examined. 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 She is a 45-year-old -0-0-2 white female who was admitted yesterday for abdominal pain, fever and CT of pelvis suggesting left tubo-ovarian abscess. She received IV antibiotics and she has been afebrile since the admission. She has seen her MOLD UNLOADER 2 months ago and her exam and Pap smear were normal. She denies history of STDs including chlamydia gonorrhea and she has been with her only. They use vasectomy for contraception. She missed her period in August and she is waiting for it within few weeks. Her abdominal pain is upper today in epigastric area. She seems comfortable to me and sitting and eating her breakfast. She denies pelvic pain, vaginal discharge or itching. She has received IV doxycycline q12 hr and 1 time of cefoxitin which was discontinued in her order set for unknown reason. I placed order back for cefoxitin to be given every 6 hours. She desires to be discharged tonight after 24 hours of IV antibiotics and agrees to follow-up in the office with pelvic ultrasound. Vital Signs Temp Pulse Pulse Pulse Resp BP BP 10/15/20 03:20 36.8 C 62 16 100/69 10/14/20 22:40 37.3 C 74 16 111/73 10/14/20 22:16 74 20 10/14/20 21:37 73 20 10/14/20 19:46 75 74 20 10/14/20 18:04 36.2 C L 98 H 20 119/89 BP Pulse Ox 10/15/20 03:20 97 10/14/20 22:40 98 10/14/20 22:16 121/64 97 10/14/20 21:37 119/75 99 10/14/20 19:46 109/77 98 10/14/20 18:04 95 Intake and Output 10/14/20 10/15/20 10/15/20 22:59 06:59 14:59 Intake Total 2109 / 0 210 / 2320 891.667 / 891.667 Output Total 350 / 350 Balance 2109 -140 1969 891.667 / 891.667 Intake: IV 2109 / 0 110 / 2220 891.667 / 891.667 Doxycycline Hyclate 100 mg In 110 / 110 Dextrose 5% 100 ml @ 50 mls/hr IV NOW STA Rx#:[id number] Lactated Ringer's 1,000 ml @ 891.667 / 891.667 125 mls/hr IV .Q8H CHARO Rx#: [id number] Sodium Chloride 0.9% 1000ML 2, 2000 / 2000 000 ml @ 999 mls/hr IV .Q2H1M ONE Rx#:[id number] cefOXitin 2,000 mg In 60 ml @ 60 / 60 100 mls/hr IV Q6 STA Rx#: [id number] cefTRIAXone SODIUM 1,000 mg In 50 / 50 50 ml @ 100 mls/hr IV NOW STA Rx#:[id number] Oral 100 / 100 Output: Urine 350 / 350 Other: Weight 105.6 kg Weight Measurement Method Stated by Patient PE: Alert, oriented x3, not in acute distress, eating her breakfast comfortably. Abdomen, soft, nontender, nondistended, no rebound no Defense. Extremities nontender no edema, SCDs on. Plan to monitor, IV AB and switch to PO tonight and possible d.c All questions were answered. Results & Data ([facility]) Vital Signs (Past 12 Hours) Vital Signs Temp Pulse Pulse Resp BP BP Pulse Ox 10/15/20 03:20 36.8 C 62 16 100/69 97 10/14/20 22:40 37.3 C 74 16 111/73 98 10/14/20 22:16 74 20 121/64 97 10/14/20 21:37 73 20 119/75 99
[2020-10-15] MEDS: ENOXAPARIN INJ 40 MG/0.4 ML SYR SQ SCH ×2 (10:43→22:42)
[2020-10-15] MEDS: cefOXitin 2,000 MG in DEXTROSE 5% 50 ML IV SCH ×3 (10:52→22:42)
[2020-10-15] MEDS: IBUPROFEN 600 MG TAB PO PRN (15:59)
--- NOTE | 2020-10-15 16:05 | Ultrasound Report ---
ULTRASOUND OF THE PELVIS CLINICAL HISTORY: Abnormal CT. Tubo-ovarian abscess. COMPARISON STUDY: Pelvic CT dated 10/14/2020. TECHNIQUE: Real-time, grayscale, and color flow sonography of the pelvis is performed both transabdom inally and endovaginally. Images are reviewed in the transverse and longitudinal planes. The endovagi nal examination is performed for better assessment of the adnexa. FINDINGS: Uterus: The uterus is normal in size and echotexture, measuring 11.2 x 4.4 x 5.8 cm. Endometrium: The endometrium is mildly thickened, with the endometrial stripe measuring up to 1.4 cm. There is fluid within the endometrial canal. Complex fluid is also seen within the endocervical jasen l. Ovaries: The right ovary is normal as visualized, and is only seen on the transabdominal imaging. Thi s measures 1.6 x 1.4 x 2.0 cm. A structure that likely represents the left ovary measures 3.7 x 2.6 x 2.9 cm. The left fallopian tube appears dilated and fluid-filled, and this complex measures approxim ately 5.5 x 4.1 x 5.0 cm. This appears hyperemic on color imaging. Normal Doppler waveforms are shown within the right ovary. Pelvis: There is no free fluid in the cul-de-sac. No concerning adnexal lesion is seen. IMPRESSION: 1. The left fallopian tube appears dilated and fluid-filled measuring up to 5.5 cm. This is hyperemic on color imaging, and pyosalpinx/tubo-ovarian abscess is not excluded. These findings are better ass essed on yesterday's CT scan. 2. Complex fluid is noted within the endocervical canal. 3. The right ovary is normal as visualized. ACT 112: Negative or not required by law. Electronically signed by: Sergio Taveras M.D. 10/15/2020 4:03 PM
--- NOTE | 2020-10-15 22:52 | Obstetrical Progress Note ---
Date of Service October 15, 2020 Assessment & Plan Admission and Anticipated Discharge Date Admission Date: October 14, 2020 Subjective Patient is reevaluated She feels epigastric pain/ tenderness and LLQ tenderness when she pushes on them. Not otherwise She has not taken any Ibuprofen and has not had pain nor fever Discussed US results Blood culture pending Discussed d/c now or tomorrow am, she prefers tomorrow am Plan to continue with IV AB and d/c home in am with PO AB f/u with PCP and quality control engineer All questions were answered Results & Data ([facility]) Vital Signs (Past 12 Hours) Vital Signs Temp Pulse Pulse Resp BP Pulse Ox 10/15/20 19:50 36.9 C 84 18 103/69 98 10/15/20 15:50 37.4 C 88 18 115/79 99 10/15/20 12:38 37 C 80 18 112/75 97
[2020-10-15] MEDS ORDERED: CALCIUM CARBONATE 500 MG CHEWABLE TAB PO PRN (22:53)
[2020-10-16] MEDS: IBUPROFEN 600 MG TAB PO PRN (00:20)
[2020-10-16] MEDS: LACTATED RINGER'S 1,000 ML IV SCH (05:03)
[2020-10-16] MEDS: cefOXitin 2,000 MG in DEXTROSE 5% 50 ML IV SCH (05:04)
[2020-10-16] MEDS: DOXYCYCLINE HYCLATE 100 MG in DEXTROSE 5% 100 ML IV SCH (07:24)
--- NOTE | 2020-10-16 08:17 | Gynecologic Progress Note ---
Date of Service October 16, 2020 Assessment & Plan Admission and Anticipated Discharge Date Admission Date: October 14, 2020 Subjective patient doing well passing gas tolerating diet out of bed minimal discomfort Physical Exam Constitutional: WD/WN, vitals as above well developed and comfortable Gastrointestinal (Abdomen): normal bowel sounds, soft, nontender, no hepatosplenomegaly no guarding or rebound abdomen soft will plan for discharge Results & Data ([facility]) Vital Signs (Past 12 Hours) Vital Signs Temp Pulse Resp BP Pulse Ox 10/16/20 03:50 36.8 C 65 16 111/72 96 10/16/20 00:05 37.3 C 76 20 124/84 97 Laboratory Results 10/14/20 10/14/20 10/14/20 18:25 18:25 18:25 WBC 12.28 H RBC 4.71 Hgb 14.3 Hct 42.2 MCV 89.6 MCH 30.4 MCHC 33.9 RDW Std Deviation 43.4 RDW Coeff of Trung 13.2 Plt Count 252 MPV 9.6 Immature Gran % (Auto) 0.3 Neut % (Auto) 79.7 Lymph % (Auto) 12.1 [place] % (Auto) 7.1 Eos % (Auto) 0.6 Baso % (Auto) 0.2 Neut # (Auto) 9.79 H Lymph # (Auto) 1.48 [place] # (Auto) 0.87 H Eos # (Auto) 0.07 Baso # (Auto) 0.03 Immature Gran # (Auto) 0.04 H Sodium 138 Potassium 3.5 Chloride 106 Carbon Dioxide 24 Anion Gap 8.0 BUN 10 Creatinine 0.83 Est Cr Clr Drug Dosing 97.5 Est GFR ( Amer) 97.3 Est GFR (Non-Af Amer) 84.0 BUN/Creatinine Ratio 12.3 Glucose 89 Calcium 8.7 Total Bilirubin 0.9 AST 12 L ALT 23 Alkaline Phosphatase 68 Total Protein 7.9 Albumin 3.8 Globulin 4.1 H Albumin/Globulin Ratio 0.9 Lipase 69 L Urine Color Urine Appearance Urine pH Ur Specific Oil Trough Urine Protein Urine Glucose (UA) Urine Ketones Urine Blood Urine Nitrite Urine Bilirubin Urine Urobilinogen Ur Leukocyte Esterase Urine WBC (Auto) Urine RBC (Auto) U Hyaline Cast (Auto) U Epithel Cells (Auto) Urine Bacteria (Auto) Urine Test Lyme Disease IgG Ab Negative Lyme Disease IgM Ab Negative COVID-19 Eval Order SARS-CoV-2 (PCR) 10/14/20 10/14/20 10/14/20 18:25 18:25 20:53 WBC RBC Hgb Hct MCV MCH MCHC RDW Std Deviation RDW Coeff of Trung Plt Count MPV Immature Gran % (Auto) Neut % (Auto) Lymph % (Auto) [place] % (Auto) Eos % (Auto) Baso % (Auto) Neut # (Auto) Lymph # (Auto) [place] # (Auto) Eos # (Auto) Baso # (Auto) Immature Gran # (Auto) Sodium Potassium Chloride Carbon Dioxide Anion Gap BUN Creatinine Est Cr Clr Drug Dosing Est GFR ( Amer) Est GFR (Non-Af Amer) BUN/Creatinine Ratio Glucose Calcium Total Bilirubin AST ALT Alkaline Phosphatase Total Protein Albumin Globulin Albumin/Globulin Ratio Lipase Urine Color Dark Yellow Urine Appearance Cloudy A Urine pH 5.5 Ur Specific Oil Trough 1.037 H Urine Protein 2+ H Urine Glucose (UA) Negative Urine Ketones 4+ H Urine Blood Negative Urine Nitrite Positive A Urine Bilirubin 1+ H Urine Urobilinogen Negative Ur Leukocyte Esterase 2+ H Urine WBC (Auto) >30 H Urine RBC (Auto) 0-4 U Hyaline Cast (Auto) 1-5 U Epithel Cells (Auto) >30 H Urine Bacteria (Auto) 1+ H Urine Test Negative Lyme Disease IgG Ab Lyme Disease IgM Ab COVID-19 Eval Order Covid19 at [facility] SARS-CoV-2 (PCR) 10/14/20 10/15/20 20:53 06:04 WBC 7.72 RBC 4.05 L Hgb 12.0 Hct 36.0 L MCV 88.9 MCH 29.6 MCHC 33.3 RDW Std Deviation 43.3 RDW Coeff of Trung 13.3 Plt Count 170 MPV 9.5 Immature Gran % (Auto) 0.4 Neut % (Auto) 76.0 Lymph % (Auto) 12.6 [place] % (Auto) 9.1 Eos % (Auto) 1.6 Baso % (Auto) 0.3 Neut # (Auto) 5.88 Lymph # (Auto) 0.97 L [place] # (Auto) 0.70 H Eos # (Auto) 0.12 Baso # (Auto) 0.02 Immature Gran # (Auto) 0.03 H Sodium Potassium Chloride Carbon Dioxide Anion Gap BUN Creatinine Est Cr Clr Drug Dosing Est GFR ( Amer) Est GFR (Non-Af Amer) BUN/Creatinine Ratio Glucose Calcium Total Bilirubin AST ALT Alkaline Phosphatase Total Protein Albumin Globulin Albumin/Globulin Ratio Lipase Urine Color Urine Appearance Urine pH Ur Specific Oil Trough Urine Protein Urine Glucose (UA) Urine Ketones Urine Blood Urine Nitrite Urine Bilirubin Urine Urobilinogen Ur Leukocyte Esterase Urine WBC (Auto) Urine RBC (Auto) U Hyaline Cast (Auto) U Epithel Cells (Auto) Urine Bacteria (Auto) Urine Test Lyme Disease IgG Ab Lyme Disease IgM Ab COVID-19 Eval Order SARS-CoV-2 (PCR) NEGATIVE
[2020-10-16] MEDS: TENOFOVIR ALAFENAMIDE PO SCH (08:46)
[2020-10-16] MEDS: RILPIVIRINE PO SCH (08:46)
[2020-10-16] MEDS: [UNRECOGNIZED DRUG - OTHER] PO SCH (08:46)
[2020-10-16] MEDS: EMTRICITABINE PO SCH (08:46)
[2020-10-16] MEDS: CHOLECALCIFEROL 400 UNITS 10 MCG TAB PO SCH (08:47)
[2020-10-16] MEDS: ZINC SULFATE 220 MG CAPSULE PO SCH (08:47)
[2020-10-16] MEDS: ADVANCED PROBIOTIC 1250 MG CAPSULE PO SCH (08:47)
--- NOTE | 2020-10-24 11:20 | Discharge Summary (DS) ---
REASON FOR ADMISSION AND HOSPITAL COURSE: The patient is a 45-year-old female, para 2-0-0-2, presented to the ER with 2 days of generalized abdominal pain, nonradiating, dull in onset. No nausea, vomiting, diarrhea or constipation. Some loss of appetite, normal bowel movements, no change in activity. The patient has a history of HIV, which she is being treated for with low viral loads. COVID negative. She was admitted, she was started on IV antibiotics and noted to have a 3 x 4 cm left hydrosalpinx consistent with a possible tubo-ovarian abscess. The patient was given IV antibiotics. She was afebrile. Her white count was normal and she was discharged home on 10/16/2020 on p.o. antibiotics. Hospital course was unremarkable. Regular diet on discharge. Medications, Motrin for pain. Condition on discharge is stable. Follow up as needed.
== END 2020-10-16 09:45 | disposition home or self-care (01) | DRG 758 ==
LOC: ED 17:51 → 4S1 21:15 → 4S2 23:08